=== PATIENT | male | born 1930 | race African-American/Black ===

== ENCOUNTER 2020-03-08 10:06 | Inpatient (IN) | payer MEDICARE, MEDICAID ==
[~2020-03-08] VITALS: Ht 172.7 cm; Wt 45.4 kg
[2020-03-08 10:44] LABS: BASOPHILS 0.2 % (0-2); EOSINOPHILS 0.9 % (0-7); HEMATOCRIT 34.8 % (42.0-54.0); HEMOGLOBIN 10.3 g/dL (13.5-17.5); IMMATURE GRANULOCYTES 0.2 % (0-5); LYMPHOCYTES 29.5 % (15-50); MCHC 29.6 g/dL (31.0-37.0); MCV 80.9 fL (80.0-100.0); MONOCYTES 9.8 % (2-11); NEUTROPHILS 59.4 % (40-80); PLATELET COUNT 300 10x3/uL (130-400); RDW 21.9 % (11.5-14.5); WBC 5.3 10x3/uL (4.8-10.8)
[2020-03-08 10:59] LABS: CALC OSMOLALITY 293 mosm/kg (275-300); CALCIUM 8.5 mg/dL (8.5-10.1); CARBON DIOXIDE 30.8 mmol/L (21.0-32.0); CHLORIDE - SERUM 108 mmol/L (98-107); CREATININE - SERUM 1.6 mg/dL (0.6-1.3); GLUCOSE 128 mg/dL (74-106); POTASSIUM - SERUM 3.9 mmol/L (3.5-5.1); SODIUM 145 mmol/L (136-145); UREA NITROGEN 22 mg/dL (7-18); eGFR NON AFRICAN AMERICAN 43 mL/min (90-120)
[2020-03-08 11:05] LABS: APTT 29.4 SECONDS (22.8-39.4); INR 1.4 (0.85-1.17); PROTIME 17.1 SECONDS (11.6-15.0)
[2020-03-08 11:06] LABS: ALBUMIN 1.9 g/dL (3.4-5.0); ALKALINE PHOSPHATASE 120 U/L (30-120); ALT (SGPT) 23 U/L (10-68); BILIRUBIN - TOTAL 0.44 mg/dL (0.2-1.3); CKMB 1.2 U/L (0.0-3.6); CREATINE KINASE 43 UL (21-232); PRO BNP 15116 pg/mL (0-450); PROTEIN - SERUM 7.1 g/dL (6.4-8.2); TROPONIN-I 0.043 ng/mL (0.000-0.060)
[2020-03-08 12:37] VITALS: BP 115/79
--- NOTE | 2020-03-08 12:44 | NUR ---
REPORT CALLED [facility]
[2020-03-08 13:42] VITALS: BP 130/78; BMI 15.2
--- NOTE | 2020-03-08 19:20 | NUR ---
RECEIVED REPORT, WILL ASSUME CARE OF PT, SLEEPING, NO DISTRESS NOTICED AT THIS TIME, BED ALARM IN ON, BED IS LOW, SRX2, CALL LIGHT IN REACH, WILL CONTINUE PLAN OF CARE
[2020-03-08 19:30] VITALS: BP 125/66
--- NOTE | 2020-03-08 19:30 | NUR ---
PT LAYING IN BED ALERT, SPEECH GARBLED. ASSISTED PT TO SIT UP AND EAT. PT REPORTS NO CONCERNS AT THIS TIME.
--- NOTE | 2020-03-09 02:15 | NUR ---
PT ALERT, LAYING IN BED. SPEECH GARBLED. ASSISTED PT TO SIT UP AND EAT. CALL LIGHT IN LAP. PT REPORTS NO COMPLAINTS AT THIS TIME.
[2020-03-09 06:03] VITALS: BP 139/90
[2020-03-09 06:16] LABS: BASOPHILS 0.2 % (0-2); HEMOGLOBIN 10.2 g/dL (13.5-17.5); IMMATURE GRANULOCYTES 0.2 % (0-5); LYMPHOCYTES 32.5 % (15-50); MCH 23.7 pg (26.0-34.0); MCHC 29.1 g/dL (31.0-37.0); MCV 81.4 fL (80.0-100.0); MEAN PLATELET VOLUME 9.9 fL (7.4-10.4); NEUTROPHILS 53.1 % (40-80); PLATELET COUNT 314 10x3/uL (130-400); WBC 4.5 10x3/uL (4.8-10.8)
[2020-03-09 06:38] LABS: ALBUMIN 1.7 g/dL (3.4-5.0); BILIRUBIN - TOTAL 0.2 mg/dL (0.2-1.3); CALCIUM 8.3 mg/dL (8.5-10.1); CARBON DIOXIDE 32.2 mmol/L (21.0-32.0); CREATININE - SERUM 1.6 mg/dL (0.6-1.3); MAGNESIUM - SERUM 1.7 mg/dL (1.8-2.4); PHOSPHOROUS 5.1 mg/dL (2.5-4.9); PROTEIN - SERUM 6.6 g/dL (6.4-8.2)
[2020-03-09 06:39] LABS: ANION GAP 6.1 mmol/L (8-16); POTASSIUM - SERUM 3.3 mmol/L (3.5-5.1)
--- NOTE | 2020-03-09 08:00 | NUR ---
PT RECEIVED ASLEEP IN BED. PT INCONTINENT OF URINE, LINENS CHANGED AND PT CLEANED UP AND POSITIONED FOR COMFORT. 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 NOT WANTING TO EAT.
[2020-03-09 08:33] VITALS: BP 149/76
--- NOTE | 2020-03-09 09:47 | NUR ---
RESULTS FOR PT COVID TEST BACK NEGATIVE, OUT OF ISOLATION.
--- NOTE | 2020-03-09 10:23 | NUR ---
PT MOVED TO ROOM 2133 AFTER NEG COVID TEST.
[2020-03-09 12:50] VITALS: BMI 15.2
[2020-03-09 13:06] VITALS: BP 150/80
[2020-03-09 18:00] VITALS: BP 148/83
--- NOTE | 2020-03-09 19:27 | NUR ---
PATIENT IS SLEEPING COMFORTABLY IN BED. PATIENT IS HAPPILY CONFUSED. HE HOLDS A CONVERSATION WITH YOU. HE IS ON 4 LITERS NASAL CANULA. HE WEARS 4 LITERS NASAL CANULA AT HOME. HE IS NOT ON TELE. WE WILL CONTINUE TO MONITOR HIS RESPIRATORY STATUS.
[2020-03-09 20:00] VITALS: BP 118/73
[2020-03-10] VITALS: BP 136/75
[2020-03-10 04:00] VITALS: BP 148/85
--- NOTE | 2020-03-10 04:11 | NUR ---
PATIENT IS SLEEPING COMFORTABLY IN BED. HE IS CONFUSED. HE IS SUPPOSED TO GET A THORACENTESIS THIS MORNING. WE WILL NEED A TELEPHONE ORDER FROM HIS SON, BUT WE NEED TO GET HIS SON'S TELEPHONE NUMBER. HE IS ON 4 LITERS NASAL CANULA. WE WILL CONTINUE TO MONITOR HIS RESPIRATORY STATUS.
[2020-03-10 06:49] LABS: BASOPHILS 0.2 % (0-2); EOSINOPHILS 1.8 % (0-7); HEMATOCRIT 36.3 % (42.0-54.0); HEMOGLOBIN 10.6 g/dL (13.5-17.5); IMMATURE GRANULOCYTES 0.2 % (0-5); LYMPHOCYTES 27.4 % (15-50); MCH 23.9 pg (26.0-34.0); MCHC 29.2 g/dL (31.0-37.0); MCV 81.9 fL (80.0-100.0); MEAN PLATELET VOLUME 9.4 fL (7.4-10.4); MONOCYTES 10.4 % (2-11); PLATELET COUNT 290 10x3/uL (130-400); RBC 4.43 10x6/uL (4.20-6.10); RDW 21.9 % (11.5-14.5); WBC 4.4 10x3/uL (4.8-10.8)
[2020-03-10 06:56] LABS: CALCIUM 8.5 mg/dL (8.5-10.1); CARBON DIOXIDE 37.6 mmol/L (21.0-32.0); CREATININE - SERUM 1.4 mg/dL (0.6-1.3); MAGNESIUM - SERUM 1.5 mg/dL (1.8-2.4); PHOSPHOROUS 4.1 mg/dL (2.5-4.9); POTASSIUM - SERUM 3.6 mmol/L (3.5-5.1)
[2020-03-10 07:29] LABS: APTT 31.7 SECONDS (22.8-39.4)
[2020-03-10 07:33] LABS: INR 1.25 (0.85-1.17); PROTIME 15.6 SECONDS (11.6-15.0)
[2020-03-10 09:02] VITALS: Ht 172.7 cm; Wt 45.4 kg
[2020-03-10 09:56] VITALS: BP 142/78
--- NOTE | 2020-03-10 15:38 | NUR ---
OT NOTE: PT OUT OF ROOM AT 3:00..WILL RE ATTEMPT TOMORROW. HENRIQUE MCCLENDON, OTR/L
[2020-03-10 16:34] LABS: PROTEIN - BODY FLUID 4.9 G/DL
--- NOTE | 2020-03-10 19:20 | NUR ---
PATIENT IS RESTING IN BED. HIS SON IS IN THE ROOM. PATIENT IS ALERT, BUT HAS SOME CONFUSION. HE IS ON NASAL CANULA. WE WILL CONTINUE TO HIS RESPIRATORY STATUS.
[2020-03-11] VITALS: BP 98/61
[2020-03-11 05:51] LABS: BASOPHILS 0 % (0-2); EOSINOPHILS 0.9 % (0-7); HEMATOCRIT 34.3 % (42.0-54.0); HEMOGLOBIN 10.1 g/dL (13.5-17.5); IMMATURE GRANULOCYTES 0.2 % (0-5); LYMPHOCYTES 27.8 % (15-50); MCHC 29.4 g/dL (31.0-37.0); MCV 81.7 fL (80.0-100.0); MEAN PLATELET VOLUME 9.2 fL (7.4-10.4); MONOCYTES 9.8 % (2-11); NEUTROPHILS 61.3 % (40-80); PLATELET COUNT 246 10x3/uL (130-400); RDW 21.8 % (11.5-14.5); WBC 4.5 10x3/uL (4.8-10.8)
[2020-03-11 06:28] LABS: ANION GAP 6.8 mmol/L (8-16); CALCIUM 8.6 mg/dL (8.5-10.1); CARBON DIOXIDE 37.5 mmol/L (21.0-32.0); CREATININE - SERUM 1.3 mg/dL (0.6-1.3); MAGNESIUM - SERUM 1.8 mg/dL (1.8-2.4); PHOSPHOROUS 4.4 mg/dL (2.5-4.9); POTASSIUM - SERUM 3.3 mmol/L (3.5-5.1)
[2020-03-11 09:00] VITALS: BP 120/57
[2020-03-11 12:00] VITALS: BP 125/70
--- NOTE | 2020-03-11 13:41 | NUR ---
Nutrition Follow-up: Pt confused. Nursing reports that pt is a feeder but is unsure how he ate this AM. No family at BS. Thoracentesis yesterday (-1.6 L). Diet: Cardiac PO intake: 0-50% per chart Wt: 100# (03/09) Labs noted: K+ 3.3, Glu 69 Meds noted: Lasix, electrolyte protocol -Encourage PO intake and honor food preferences within diet restrictions. -+Ensure with meals. -Monitor wt. -RD following.
--- NOTE | 2020-03-11 16:21 | NUR ---
I have reviewed this patient and I concur with the Shift Assessment completed by the Licensed Practical Nurse today this shift.
[2020-03-11 16:28] VITALS: BP 124/69
[2020-03-11 20:00] VITALS: BP 126/70
--- NOTE | 2020-03-11 20:30 | NUR ---
PATIENT IS RESTING COMFORTABLY IN BED. HE IS PLEASANTLY CONFUSED. HE IS HARD OF HEARING, AND HIS HEARING AIDS ARE IN BOX ON SINK. HE IS ON NASAL CANULA. WE WILL CONTINUE TO MONITOR HIS RESPIRATORY STATUS.
[2020-03-12] VITALS: BP 133/68
[2020-03-12 04:00] VITALS: BP 129/67
[2020-03-12 05:25] LABS: BASOPHILS 0 % (0-2); EOSINOPHILS 1.4 % (0-7); HEMOGLOBIN 9.1 g/dL (13.5-17.5); IMMATURE GRANULOCYTES 0.2 % (0-5); LYMPHOCYTES 30.4 % (15-50); MCH 23.6 pg (26.0-34.0); MCHC 29.4 g/dL (31.0-37.0); MCV 80.3 fL (80.0-100.0); MEAN PLATELET VOLUME 9.5 fL (7.4-10.4); PLATELET COUNT 246 10x3/uL (130-400); RBC 3.86 10x6/uL (4.20-6.10); WBC 4.2 10x3/uL (4.8-10.8)
[2020-03-12 06:46] LABS: ANION GAP 8.6 mmol/L (8-16); CALCIUM 8.2 mg/dL (8.5-10.1); CARBON DIOXIDE 37.3 mmol/L (21.0-32.0); CREATININE - SERUM 1.3 mg/dL (0.6-1.3); MAGNESIUM - SERUM 1.5 mg/dL (1.8-2.4)
[2020-03-12 07:01] LABS: PHOSPHOROUS 2.8 mg/dL (2.5-4.9)
[2020-03-12 07:02] LABS: POTASSIUM - SERUM 2.9 mmol/L (3.5-5.1)
--- NOTE | 2020-03-12 07:15 | NUR ---
received pt in bed eyes closed resp unlabored skin w/d color wnl naD NOTED
[2020-03-12 09:00] VITALS: BP 138/67
[2020-03-12 12:45] VITALS: BP 123/62
--- NOTE | 2020-03-12 13:30 | NUR ---
OT NOTE: PT WITH INCREASED CONFUSION TODAY. ATTEMPTING TO GET OUT OF BED AND STATING THAT HE NEEDS TO GO HOME. PT WAS WET WITH URINE AND HAD SPILLED FOOD ALL IN BED. PT ABLE TO PERFORM BED MOB WITH SPV; STATIC SITTING ON EOB WITH SPV; PROVIDED BASIN OF WATER AND WASHCLOTHS.. PT REQUIRED CUES TO INITIATE BATHING EACH AREA, BUT WAS ABLE TO PERFORM FACE, ARMS, AND CHEST WITH SET UP AND VERBAL CUES..REQUIRED ASSIST WITH LES AND PERINEAL AREAS. MIN ASSIST TO DEMETRIUS GOWN AND MIN ASSIST TO DEMETRIUS PULL UPS; PROVIDED CLEAN LINENS.. PT WAS ABLE TO AMB AROUND ROOM WITH PLASTER MACHINE TENDER; ABLE TO STAND AT SINK WITH MIN ASSIST FOR BALANCE. 02 AT 3.5 L.. HENRIQUE MCCLENDON, OTR/L [phone]
--- NOTE | 2020-03-12 14:51 | MORECARE ---
CASE MANAGEMENT DISCHARGE SUMMARY PATIENT: BROOKE ZHENG JR UNIT: [id number] ADM DATE: 03/08/20 AGE: 89 : [birth year] SEX: M ROOM/BED: D.2134 AUTHOR: CAROL STORY PHYSICIAN: REFERRING PHYSICIAN: SHARI GILMORE MD DATE OF SERVICE: 03/12/20 Discharge Plan Patient Name: BROOKE ZHENG [facility] [facility] 1930 Planned Disposition: Anticipated Discharge Date: Discharge Date: Expected LOS: Initial Reviewer: [email or web address] Initial Review Date: 03/08/2020 Generated: 03/12/20 3:50 pm Comments DCP- Discharge Planning Updated by [id number]: Siobhan Wolf on 03/12/20 1:[address] CM unable to meet with patient related to confusion. CM called David (son) at [phone]. Unable to leave message because the voice mail has not been set. up. CM will continue following and assisting with DC plans. Siobhan Wolf Patient Name: BROOKE ZHENG Page 28865 at 1451 All edits/amendments must be made on the electronic document DICTATION DATE: 03/12/201450 SALES CENTER MANAGER: RADHA 03/12/20 145 RPT#: [id number] DC DATE: STATUS: ADM IN [facility] [address] [place] [address] END OF REPORT
[2020-03-12 15:51] VITALS: BP 116/59
--- NOTE | 2020-03-12 19:43 | NUR ---
OT NOTE: PT STATED HE WANTS TO GO HOME. PT EXHIBITED INCREASED CONFUSION. NURSING AWARE. PT COMPLETED SUPINE TO SIT WITH MIN A. PT COMPLETED EOB SITTING WITH SBA/CGA. PT COMPLETED UE AAROM FOR INCREASED AX TOLERANCE. PT REQUIRED MAX A WITH LB HYGIENE TASKS. [phone] THANK YOU,MICHAEL SINGH
--- NOTE | 2020-03-12 19:55 | NUR ---
PATIENT IS RESTING IN BED. HE IS PLEASANTLY CONFUSED. HE IS ON NASAL CANULA. NO TELEMETRY. WE WILL CONTINUE TO MONITOR HIS RESPIRATORY STATUS.
[2020-03-12 20:30] VITALS: BP 115/71
[2020-03-13 00:32] VITALS: BP 111/68
[2020-03-13 03:21] VITALS: BP 105/60
--- NOTE | 2020-03-13 04:21 | NUR ---
PATIENT IS RESTING COMFORTABLY IN BED. HE IS PLEASANTLY CONFUSED. HE IS ON 4 LITERS NASAL CANULA. WE WILL CONTNUE TO MONITOR HIS RESPIRATORY STATUS.
[2020-03-13 05:07] LABS: BASOPHILS 0 % (0-2); HEMATOCRIT 32.6 % (42.0-54.0); HEMOGLOBIN 9.9 g/dL (13.5-17.5); IMMATURE GRANULOCYTES 0.2 % (0-5); MCH 24.3 pg (26.0-34.0); MCHC 30.4 g/dL (31.0-37.0); MCV 80.1 fL (80.0-100.0); MEAN PLATELET VOLUME 8.8 fL (7.4-10.4); MONOCYTES 14.1 % (2-11); NEUTROPHILS 54.7 % (40-80); PLATELET COUNT 221 10x3/uL (130-400); RBC 4.07 10x6/uL (4.20-6.10); RDW 21.9 % (11.5-14.5); WBC 4.8 10x3/uL (4.8-10.8)
[2020-03-13 05:27] LABS: ANION GAP 4.9 mmol/L (8-16); CALCIUM 8.4 mg/dL (8.5-10.1); CARBON DIOXIDE 38.8 mmol/L (21.0-32.0); CREATININE - SERUM 1.2 mg/dL (0.6-1.3); MAGNESIUM - SERUM 1.7 mg/dL (1.8-2.4); PHOSPHOROUS 2.3 mg/dL (2.5-4.9); POTASSIUM - SERUM 3.7 mmol/L (3.5-5.1)
[2020-03-13 08:30] VITALS: BP 107/68
--- NOTE | 2020-03-13 09:27 | NUR ---
RESTING IN BED, NO DISTRESS NOTED, O2 PER NC, OPENS EYES WHEN SPOKEN TO, FED BREAKFAST, CONT TO MONITOR
[2020-03-13 11:30] VITALS: BP 117/69
[2020-03-13 15:30] VITALS: BP 135/75
--- NOTE | 2020-03-13 19:30 | NUR ---
PT IN BED, SON AT BEDSIDE, PT EYES CLOSED, RESP EVEN AND UNLABORED, NO DISTRESS NOTED. CL IN REACH, SR UP X 2.
[2020-03-13 20:00] VITALS: BP 118/68
[2020-03-14] VITALS: BP 124/75
--- NOTE | 2020-03-14 00:21 | NUR ---
I have reviewed this patient and I concur with the Shift Assessment completed by the Licensed Practical Nurse today this shift.
[2020-03-14 04:00] VITALS: BP 118/62
[2020-03-14 04:51] LABS: BASOPHILS 0.2 % (0-2); EOSINOPHILS 2.5 % (0-7); HEMATOCRIT 32.9 % (42.0-54.0); HEMOGLOBIN 9.9 g/dL (13.5-17.5); IMMATURE GRANULOCYTES 0.2 % (0-5); LYMPHOCYTES 31.5 % (15-50); MCH 24.1 pg (26.0-34.0); MCHC 30.1 g/dL (31.0-37.0); MEAN PLATELET VOLUME 9.7 fL (7.4-10.4); MONOCYTES 14.9 % (2-11); NEUTROPHILS 50.7 % (40-80); PLATELET COUNT 234 10x3/uL (130-400); RBC 4.11 10x6/uL (4.20-6.10); RDW 22.1 % (11.5-14.5); WBC 4.8 10x3/uL (4.8-10.8)
[2020-03-14 05:20] LABS: ANION GAP 4.9 mmol/L (8-16); CALCIUM 8.2 mg/dL (8.5-10.1); CREATININE - SERUM 1.1 mg/dL (0.6-1.3); MAGNESIUM - SERUM 1.7 mg/dL (1.8-2.4); PHOSPHOROUS 3.6 mg/dL (2.5-4.9); POTASSIUM - SERUM 3.4 mmol/L (3.5-5.1)
[2020-03-14 05:21] LABS: CARBON DIOXIDE 42.5 mmol/L (21.0-32.0)
--- NOTE | 2020-03-14 07:20 | NUR ---
RECIEVE REPORT. RESTING IN BED WITH EYES CLOSED. RESPIRATIONS SHALLOW. O2 @ 2L NC. NO SIGNS OF DISTRESS. CONTINUE PLAN OF CARE AND SAFETY PRECUATIONS.
[2020-03-14 09:38] VITALS: BP 114/62
[2020-03-14 13:30] VITALS: BP 114/64
[2020-03-14 20:20] VITALS: BP 121/68
[2020-03-15 04:00] VITALS: BP 117/69
[2020-03-15 06:08] LABS: ANION GAP 3.5 mmol/L (8-16); CALCIUM 8.3 mg/dL (8.5-10.1); CREATININE - SERUM 1.2 mg/dL (0.6-1.3); MAGNESIUM - SERUM 1.7 mg/dL (1.8-2.4); PHOSPHOROUS 3.8 mg/dL (2.5-4.9); POTASSIUM - SERUM 3.2 mmol/L (3.5-5.1)
[2020-03-15 06:09] LABS: CARBON DIOXIDE 43.7 mmol/L (21.0-32.0)
--- NOTE | 2020-03-15 07:20 | NUR ---
RECIEVE REPORT. RESTING IN BED WITH EYES CLOSED. AROUSES EASILY TO STIMULI. [place] PASS. BETTER HEARING IN LT EAR. DENIES ANY NEEDS. CONTINUE PLAN OF CARE AND SAFETY PRECAUTIONS.
[2020-03-15 08:00] VITALS: BP 107/65
[2020-03-15 11:00] VITALS: BP 114/62
[2020-03-15 15:00] VITALS: BP 127/68
--- NOTE | 2020-03-15 15:14 | NUR ---
OT NOTE: BED MOB WITH MIN ASSIST; EOB SITTING ON BED WITH SPV AND GOOD BALANCE; MOD ASSIST TO DEMETRIUS PULL UPS; MIN ASSIST TO DEMETRIUS GOWN; MIN ASSIST TO BATHE UPPER BODY; MOD ASSIST TO BATHE LOWER BODY. IN ROOM AMBULATION WITH WALKER AND MIN/CGA; AMB INTO HALLWAY WITH MIN ASSIST AMD RW TO IMPROVE STRENGTH AND FUNCTIONAL ENDURANCE; ASSISTED WITH FEEDING FOR SET UP ONLY. PT DOES BETTER IF SITTING UP IN CHAIR FOR MEALS. HENRIQUE MCCLENDON, OTR/L
--- NOTE | 2020-03-15 15:29 | NUR ---
OT NOTE: PT IS [place] PASS. PT REQUIRED VISUAL CUES FOR INCREASED PARTICIPATION. PT COMPLETED UE AROM TOLERATED. PT COMPLETED SIT TO STAND WITH CGA. PT COMPLETED EOB SITTING BALANCE WITH CGA. PT COMPLETED ORAL CARE WITH MIN A. [phone] THANK YOU,MICHAEL SINGH
--- NOTE | 2020-03-15 15:35 | NUR ---
OT NOTE: PT COMPLETED BED MOB TASKS WITH MIN/MOD A WITH LLE. PT COMPLETED BED TO BSC TSF WITH CGA. PT COMPLETED TOILETING TASKS WITH CGA. PT COMPLETED HYGIENE WITH SET UP. [phone] THANK YOU,MICHAEL SINGH
--- NOTE | 2020-03-15 16:31 | NUR ---
ALERT AND ORIENTED X4. RESTING IN BED. TOOK LT FA IV OUT TIP INTACT. REFUSE IV RESITE. PATIENT STATES, "I'M DONE WITH THE IVs. I'VE HAD TOO MANY. NO MORE."
--- NOTE | 2020-03-15 19:00 | NUR ---
EVENING ROUNDS COMPLETE. PT LAYING IN BED. NO SIGNS OF DISTRESS. PT DENIES ANY PAIN OR NEEDS AT THIS TIME. AAOX4. CL IN REACH, BED IN LOWEST POSITION.
[2020-03-15 20:00] VITALS: BP 123/62
[2020-03-16 00:59] VITALS: BP 127/79
[2020-03-16 05:11] VITALS: BP 121/73
[2020-03-16 06:14] LABS: BASOPHILS 0 % (0-2); EOSINOPHILS 7.2 % (0-7); HEMATOCRIT 29.1 % (42.0-54.0); HEMOGLOBIN 8.6 g/dL (13.5-17.5); LYMPHOCYTES 32.7 % (15-50); MCH 23.6 pg (26.0-34.0); MCHC 29.6 g/dL (31.0-37.0); MCV 79.9 fL (80.0-100.0); MEAN PLATELET VOLUME 9.7 fL (7.4-10.4); NEUTROPHILS 45.1 % (40-80); PLATELET COUNT 225 10x3/uL (130-400); RBC 3.64 10x6/uL (4.20-6.10); RDW 21.8 % (11.5-14.5); WBC 3.7 10x3/uL (4.8-10.8)
[2020-03-16 06:28] LABS: ANION GAP 1.4 mmol/L (8-16); CALCIUM 8.4 mg/dL (8.5-10.1); CREATININE - SERUM 1.1 mg/dL (0.6-1.3); MAGNESIUM - SERUM 1.8 mg/dL (1.8-2.4); PHOSPHOROUS 3.3 mg/dL (2.5-4.9); POTASSIUM - SERUM 3.5 mmol/L (3.5-5.1)
[2020-03-16 06:52] LABS: CARBON DIOXIDE 43.1 mmol/L (21.0-32.0)
--- NOTE | 2020-03-16 07:15 | NUR ---
RECEIVE BEDSIDE SHIFT REPORT. RESTING IN BED WITH EYES CLOSED. NO SIGNS OF DISTRESS. CALL LIGHT IN REACH. WILL CONTINUE PLAN OF CARE AND SAFETY PRECAUTIONS.
[2020-03-16 08:00] VITALS: BP 131/71
[2020-03-16 11:00] VITALS: BP 111/62
--- NOTE | 2020-03-16 11:50 | NUR ---
PATIENT REFUSE IV. CALLED ISAIAH GODINEZ APRN TO DISCUSS PLANS FOR MEDICATION. WILL PUT IN ORDERS FOR ORAL MEDICATIONS.
--- NOTE | 2020-03-16 12:46 | NUR ---
Nutrition Follow-up: Nurse feeding pt at time of visit this AM. Drinking Ensure as well. Diet: Cardiac, Ensure TID PO intake: 44% avg x 9 meals Wt: 100# (03/09) Last BM: 03/14 per chart Labs noted: Ca 8.4 Meds noted: Lasix, electrolyte protocol -Encourage PO intake and honor food preferences within diet restrictions. -Pt may benefit from an appetite stimulant. -Need new wt. -RD following.
[2020-03-16 15:00] VITALS: BP 115/60
--- NOTE | 2020-03-16 16:12 | NUR ---
OT NOTE: PT LIEING IN BED. INITIALLY RESISTANT TO ALL ACTIVITIES BUT AGREEABLE WITH ENCOURAGEMENT. BED MOB WITH CGA; IN ROOM AMB WITH WALKER AND MIN ASSIST; ABLE TO PERFORM SIMPLE GROOMING TASKS WITH SET UP.. VERY [place] AND FREQ REQURIES DEMONSTRATIONAL CUES. PT DOES NOT WANT TO SIT UP.. WANTS TO LIE BACK DOWN IN BED. HENRIQUE MCCLENDON, OTR/L [phone]
--- NOTE | 2020-03-16 16:20 | NUR ---
Rehab Note- Recevied call from Marianela with [facility] stating their medical numerical control operator has denied the patient an inpatient acute rehab stay. A peer to peer can be set up by 1500 on Sun03/17/2020 by calling Marianela at [phone]. Left VM for [facility] Arciniega. Thank you for this referral! Anais Garza RN Clinical Liaison, [facility] Rehab
--- NOTE | 2020-03-16 17:16 | NUR ---
OT NOTE: PT COMPLETED SUPINE TO SIT WITH MIN A. PT COMPLETED EOB SITTING WITH SBA. PT COMPLETED SIT TO STAND WITH MIN/CGA. PT COMPLETED ADL MOB WITH RW WITH CGA. PT COMPLETED FACE HYGIENE WITH SET UP. [phone] THANK YOU,DEISY CAMPOS.MICHAEL
--- NOTE | 2020-03-16 19:00 | NUR ---
REPORT RECEIVED, WILL CONTINUE POC. PATIENT IS RESTING WITH EYES CLOSED. NO S/S OF DISTRESS OBSERVED, RR EVEN AND UNLABORED ON 2L O2 VIA NC. PATIENT DENIES NEEDS AT THIS TIME. CL IN REACH, BED LOCKED AND LOWERED. WILL CTM.
[2020-03-16 20:00] VITALS: BP 115/69
[2020-03-17] VITALS: BP 112/70
[2020-03-17 04:00] VITALS: BP 111/65
--- NOTE | 2020-03-17 04:04 | NUR ---
I have reviewed this patient and I concur with the Shift Assessment completed by the Licensed Practical Nurse today this shift.
[2020-03-17 06:57] LABS: BASOPHILS 0 % (0-2); EOSINOPHILS 4.7 % (0-7); HEMATOCRIT 29.4 % (42.0-54.0); HEMOGLOBIN 8.7 g/dL (13.5-17.5); IMMATURE GRANULOCYTES 0.2 % (0-5); LYMPHOCYTES 24.8 % (15-50); MCH 23.6 pg (26.0-34.0); MCHC 29.6 g/dL (31.0-37.0); MCV 79.7 fL (80.0-100.0); MEAN PLATELET VOLUME 9.7 fL (7.4-10.4); MONOCYTES 12.1 % (2-11); NEUTROPHILS 58.2 % (40-80); PLATELET COUNT 237 10x3/uL (130-400); RBC 3.69 10x6/uL (4.20-6.10); RDW 21.6 % (11.5-14.5)
[2020-03-17 07:16] LABS: ANION GAP 0.9 mmol/L (8-16); CALCIUM 8.6 mg/dL (8.5-10.1); CREATININE - SERUM 1.1 mg/dL (0.6-1.3); POTASSIUM - SERUM 3.8 mmol/L (3.5-5.1)
[2020-03-17 07:32] LABS: CARBON DIOXIDE 42.9 mmol/L (21.0-32.0)
[2020-03-17 07:40] LABS: MAGNESIUM - SERUM 2.1 mg/dL (1.8-2.4); PHOSPHOROUS 3.6 mg/dL (2.5-4.9)
[2020-03-17 08:00] VITALS: BP 125/72
[2020-03-17 11:00] VITALS: BP 109/66
--- NOTE | 2020-03-17 12:09 | MORECARE ---
CASE MANAGEMENT DISCHARGE SUMMARY PATIENT: BROOKE ZHENG JR UNIT: [id number] ADM DATE: 03/08/20 AGE: 89 : [birth year] SEX: M ROOM/BED: D.2109 AUTHOR: CAROL STORY PHYSICIAN: REFERRING PHYSICIAN: SHARI GILMORE MD DATE OF SERVICE: 03/17/20 Discharge Plan Patient Name: BROOKE ZHENG [facility] [facility] 1930 Planned Disposition: Anticipated Discharge Date: Discharge Date: Expected LOS: Initial Reviewer: [email or web address] Initial Review Date: 03/08/2020 Generated: 03/17/20 1:08 pm Comments DCP- Discharge Planning Updated by [email or web address]: Suze Holguin on 03/17/20 11:[address] P2P has been set up for this patient. #[phone], Marianela. The insurance MD has 24 H to respond . DCP- Discharge Planning Updated by [email or web address]: Siobhan Wolf on 03/12/20 1:[address] CM unable to meet with patient related to confusion. CM called David (son) at [phone]. Unable to leave message because the voice mail has not been set. up. CM will continue following and assisting with DC plans. Siobhan Wolf Last DP export: 03/12/20 1:51 p Patient Name: BROOKE ZHENG Page 17333 at 1209 All edits/amendments must be made on the electronic document DICTATION DATE: 03/17/201207 SOLAR SYSTEMS DESIGNER: RADHA 03/17/20 1208 RPT#: [id number] DC DATE: STATUS: ADM IN [facility] [address] [place] [address] END OF REPORT
--- NOTE | 2020-03-17 12:17 | MORECARE ---
CASE MANAGEMENT DISCHARGE SUMMARY PATIENT: BROOKE ZHENG JR UNIT: [id number] ADM DATE: 03/08/20 AGE: 89 : [birth year] SEX: M ROOM/BED: D.2109 AUTHOR: CAROL STORY PHYSICIAN: REFERRING PHYSICIAN: SHARI GILMORE MD DATE OF SERVICE: 03/17/20 Discharge Plan Patient Name: BROOKE ZHENG [facility] : 1930 Planned Disposition: Anticipated Discharge Date: Discharge Date: Expected LOS: Initial Reviewer: [email or web address] Initial Review Date: 03/08/2020 Generated: 03/17/20 1:16 pm Comments DCP- Discharge Planning Updated by [email or web address]: Suze Holguin on 03/17/20 11:[address] P2P has been set up for this patient. #[phone], Marianela. The insurance MD has 24 H to respond . CM notified Carolyn Vital GALLERY OR MUSEUM TECHNICIAN of same. DCP- Discharge Planning Updated by [email or web address]: Siobhan Wolf on 03/12/20 1:[address] CM unable to meet with patient related to confusion. CM called David (son) at [phone]. Unable to leave message because the voice mail has not been set. up. CM will continue following and assisting with DC plans. Siobhan Wolf Last DP export: 03/17/20 11:09 am Patient Name: BROOKE ZHENG Page 12750 at 1217 All edits/amendments must be made on the electronic document DICTATION DATE: 03/17/20 1216 FARM MACHINERY MECHANIC: RADHA 03/17/20 1216 RPT#: [id number] DC DATE: STATUS: ADM IN [facility] [address] [place] [address] END OF REPORT
[2020-03-17 15:00] VITALS: BP 121/64
--- NOTE | 2020-03-17 16:39 | NUR ---
OT NOTE: PT COMPLETED SIT TO STAND WITH CGA. PT COMPLETED UNDERGARMENT MANAGEMENT WITH MIN A. PT COMPLETED UB HYGIENE TASKS WITH MIN A AT EOB. PT COMPLETED ADL MOB WITH RW REQUIRED CGA. PT COMPLETED WALKER MANAGEMENT WITH MIN A FOR INCREASED SAFETY. PT ACTIVELY PARTICIPATED AND COOPERATIVE. [phone] THANK YOU,MICHAEL SINGH
--- NOTE | 2020-03-17 16:43 | MORECARE ---
CASE MANAGEMENT DISCHARGE SUMMARY PATIENT: BROOKE ZHENG JR UNIT: [id number] ADM DATE: 03/08/20 AGE: 89 : [birth year] SEX: M ROOM/BED: D.2105 AUTHOR: JEZ,DOC PHYSICIAN: REFERRING PHYSICIAN: SHARI GILMORE MD DATE OF SERVICE: 03/17/20 Discharge Plan Patient Name: BROOKE ZHENG Facility: [facility]:[place] : 1930 Planned Disposition: Anticipated Discharge Date: Discharge Date: Expected LOS: Initial Reviewer: [email or web address] Initial Review Date: 03/08/2020 Generated: 03/17/20 5:42 pm Comments DCP- Discharge Planning Updated by [email or web address]: Suze Holguin on 03/17/20 3:[address] CM contacted by Danette Vital, ROSE MARY regarding P2P. The insurance company has declined Inpatient Rehab, but would authorize a Skilled stay. The patient's son states he would rather take the patient home with [facility], at least for as long as can treat him. CM met with the patient's son, Betsy Zheng ([phone]), regarding a secondary plan, in case the P2P is unable to convince insurance of Rehab needs. Patient has [facility] ([phone]) prior to admission. DME: Walker, w/c, shower chair, Home O2 with portability. Patient's son states that he always carries a portable O2 tank in his car for his father. Release of information signed for patient, per son, in case he needs to make other arrangements, later. Patient's son will drive patient home upon DC and to his MD appointments. P2P has been set up for this patient. #[phone], Marianela. The insurance MD has 24 H to respond . CM notified Carolyn Vital NP of same. DCP- Discharge Planning Updated by [email or web address]: Siobhan Wolf on 03/12/20 1:[address] CM unable to meet with patient related to confusion. CM called David (son) at [phone]. Unable to leave message because the voice mail has not been set. up. CM will continue following and assisting with DC plans. Siobhan Wolf Last DP export: 03/17/20 11:17 am Patient Name: BROOKE ZHENG Page 63675 at 1643 All edits/amendments must be made on the electronic document DICTATION DATE: 03/17/201641 EXTERIOR DOOR INSTALLER: RADHA 03/17/201641 RPT#: [id number] DC DATE: STATUS: ADM IN [facility] [address] [place] [address] END OF REPORT
--- NOTE | 2020-03-17 17:06 | MORECARE ---
CASE MANAGEMENT DISCHARGE SUMMARY PATIENT: BROOKE ZHENG JR UNIT: [id number] ADM DATE: 03/08/20 AGE: 89 : [birth year] SEX: M ROOM/BED: D.2105 AUTHOR: JEZ,DOC PHYSICIAN: REFERRING PHYSICIAN: SHARI GILMORE MD DATE OF SERVICE: 03/17/20 Discharge Plan Patient Name: BROOKE ZHENG Facility: [facility]:[place] : 1930 Planned Disposition: Home Health Service Anticipated Discharge Date: 03/18/20 Discharge Date: Expected LOS: 10 Initial Reviewer: [email or web address] Initial Review Date: 03/08/2020 Generated: 03/17/20 6:05 pm Comments DCP- Discharge Planning Updated by [email or web address]: Suze Holguin on 03/17/20 3:[address] CM contacted by Danette Vital, ROSE MARY regarding P2P. The insurance company has declined Inpatient Rehab, but would authorize a Skilled stay. The patient's son states he would rather take the patient home with [facility], at least for as long as HH can treat him. CM met with the patient's son, Betsy Zheng ([phone]), regarding a secondary plan, in case the P2P is unable to convince insurance of Rehab needs. Patient has [facility] ([phone]) prior to admission. DME: Walker, w/c, shower chair, Home O2 with portability. Patient's son states that he always carries a portable O2 tank in his car for his father. Release of information signed for patient, per son, in case he needs to make other arrangements, later. Patient's son will drive patient home upon DC and to his MD appointments. P2P has been set up for this patient. #[phone], Marianela. The insurance MD has 24 H to respond . CM notified Carolyn Vital NP of same. DCP- Discharge Planning Updated by [email or web address]: Siobhan Wolf on 03/12/20 1:[address] CM unable to meet with patient related to confusion. CM called David (son) at [phone]. Unable to leave message because the voice mail has not been set. up. CM will continue following and assisting with DC plans. Siobhan Wolf Last DP export: 03/17/20 3:43 pm Patient Name: BROOKE ZHENG Page 90037 at 1706 All edits/amendments must be made on the electronic document DICTATION DATE: 03/17/201704 HOTEL BAGGAGE HANDLER: RADHA 03/17/201704 RPT#: [id number] DC DATE: STATUS: ADM IN [facility] [address] [place] [address] END OF REPORT
[2020-03-17 20:00] VITALS: BP 112/52
--- NOTE | 2020-03-17 23:14 | NUR ---
PATIENT IS SLEEPING COMFORTABLY IN BED. HE IS PLEASANTLY CONFUSED. HE IS ON NASAL CANULA. WE WILL CONTINUE TO MONITOR HIS RESPIRATORY STATUS.
[2020-03-18] VITALS: BP 104/56
[2020-03-18 04:00] VITALS: BP 119/69
--- NOTE | 2020-03-18 04:11 | NUR ---
PATIENT IS SLEEPING COMFORTABLY IN BED. HE IS CONFUSED TO SITUATION AND TIME. HE IS NASAL CANULA. WE WILL CONTINUE TO MONITOR HIS RESPIRATORY STATUS.
[2020-03-18 06:27] LABS: BASOPHILS 0 % (0-2); EOSINOPHILS 4.5 % (0-7); HEMATOCRIT 27.8 % (42.0-54.0); HEMOGLOBIN 8.3 g/dL (13.5-17.5); IMMATURE GRANULOCYTES 0.3 % (0-5); LYMPHOCYTES 27.2 % (15-50); MCH 23.7 pg (26.0-34.0); MCHC 29.9 g/dL (31.0-37.0); MCV 79.4 fL (80.0-100.0); MONOCYTES 13.4 % (2-11); NEUTROPHILS 54.6 % (40-80); PLATELET COUNT 231 10x3/uL (130-400); RDW 21.5 % (11.5-14.5)
[2020-03-18 07:17] LABS: ANION GAP 3.9 mmol/L (8-16); CALCIUM 8.4 mg/dL (8.5-10.1); CREATININE - SERUM 1.1 mg/dL (0.6-1.3); MAGNESIUM - SERUM 1.8 mg/dL (1.8-2.4); PHOSPHOROUS 3.2 mg/dL (2.5-4.9); POTASSIUM - SERUM 4.1 mmol/L (3.5-5.1)
[2020-03-18 07:33] LABS: CARBON DIOXIDE 42.2 mmol/L (21.0-32.0)
--- NOTE | 2020-03-18 07:43 | NUR ---
PT LAYING SUPINE, RR EVEN AND UNLABORED. DENIES NEEDS OR PAIN AT THIS TIME. CALL LIGHT WITHIN REACH. BED IN LOWEST POSITION. WILL CONTINUE TO MONITOR.
[2020-03-18 08:01] VITALS: BP 114/66
--- NOTE | 2020-03-18 10:02 | NUR ---
Nutrition Follow-up: Nursing reports pt eating ok but having some difficulty with tougher foods. Ate ~75% of breakfast this AM. Diet: Cardiac, Ensure TID PO intake: 25-75% Wt: 100# (03/09) Last BM: 03/14 per chart Labs reviewed Meds noted: Lasix, electrolyte protocol -+mech soft/chopped to current diet order. -Encourage PO intake and honor food preferences within diet restrictions. -Need new wt. -RD following.
--- NOTE | 2020-03-18 10:14 | NUR ---
Rehab Note- Received VM from Marianela with [facility] stating that Peer to Peer had been completed and denial is still upheld therefore will be issuing a denial letter. Will notify Case Management. Thank you for this referral! Anais Garza RN Clinical Liaison, [facility] Rehab
[2020-03-18 12:13] VITALS: BP 124/67
[2020-03-18] MEDS ORDERED: ZITHROMAX250 MG PO (12:30)
[2020-03-18] MEDS ORDERED: OMNICEF300 MG PO (12:31)
[2020-03-18] MEDS ORDERED: POTASSIUM CHLO10 ME1 PO (12:32)
[2020-03-18] MEDS ORDERED: LASIX20 MG PO (12:32)
--- NOTE | 2020-03-18 13:57 | MORECARE ---
CASE MANAGEMENT DISCHARGE SUMMARY PATIENT: BROOKE ZHENG JR UNIT: [id number] ADM DATE: 03/08/20 AGE: 89 : [birth year] SEX: M ROOM/BED: D.2105 AUTHOR: JEZ,DOC PHYSICIAN: REFERRING PHYSICIAN: SHARI GILMORE MD DATE OF SERVICE: 03/18/20 Discharge Plan Patient Name: BROOKE ZHENG Facility: [facility]:[place] : 1930 Planned Disposition: Home Health Service Anticipated Discharge Date: 03/18/20 Discharge Date: Expected LOS: 10 Initial Reviewer: [email or web address] Initial Review Date: 03/08/2020 Generated: 03/18/20 2:56 pm Comments DCP- Discharge Planning Updated by [email or web address]: Suze Holguin on 03/17/20 3:[address] CM contacted by Danette Vital, ROSE MARY regarding P2P. The insurance company has declined Inpatient Rehab, but would authorize a Skilled stay. The patient's son states he would rather take the patient home with [facility], at least for as long as HH can treat him. CM met with the patient's son, Betsy Zheng ([phone]), regarding a secondary plan, in case the P2P is unable to convince insurance of Rehab needs. Patient has [facility] ([phone]) prior to admission. DME: Walker, w/c, shower chair, Home O2 with portability. Patient's son states that he always carries a portable O2 tank in his car for his father. Release of information signed for patient, per son, in case he needs to make other arrangements, later. Patient's son will drive patient home upon DC and to his MD appointments. P2P has been set up for this patient. #[phone], Marianela. The insurance MD has 24 H to respond . CM notified Carolyn Vital NP of same. DCP- Discharge Planning Updated by [email or web address]: Siobhan Wolf on 03/12/20 1:[address] CM unable to meet with patient related to confusion. CM called David (son) at [phone]. Unable to leave message because the voice mail has not been set. up. CM will continue following and assisting with DC plans. Siobhan Wolf External Providers [facility] Contact Date: Service Request Date: Service Type: Resolution: Reviewer: Comments: Last DP export: 03/17/20 4:06 pm Patient Name: BROOKE ZHENG Page [id number] at 1357 All edits/amendments must be made on the electronic document DICTATION DATE: 03/18/20 1356 BOOTH CASHIER: RADHA 03/18/20 1356 RPT#: [id number] DC DATE: STATUS: ADM IN [facility] [address] [place] [address] END OF REPORT
--- NOTE | 2020-03-18 14:11 | MORECARE ---
CASE MANAGEMENT DISCHARGE SUMMARY PATIENT: BROOKE ZHENG JR UNIT: [id number] ADM DATE: 03/08/20 AGE: 89 : [birth year] SEX: M ROOM/BED: D.2107 AUTHOR: JEZ,DOC PHYSICIAN: REFERRING PHYSICIAN: SHARI GILMORE MD DATE OF SERVICE: 03/18/20 Discharge Plan Patient Name: BROOKE ZHENG Facility: [facility]:[place] : 1930 Planned Disposition: Home Health Service Anticipated Discharge Date: 03/18/20 Discharge Date: Expected LOS: 10 Initial Reviewer: [email or web address] Initial Review Date: 03/08/2020 Generated: 03/18/20 3:11 pm Comments DCP- Discharge Planning Updated by [email or web address]: Suze Holguin on 03/18/20 1:[address] CM contacted Crystal with [facility], , [place] [phone], to resume [facility] for halfway, PT. Information provided verbal and faxed. will accept patient again. Patient's son will drive him home. Release of information signed by son and placed on the chart. DCP- Discharge Planning Updated by [email or web address]: Suze Holguin on 03/17/20 3:[address] [facility] contacted by Danette Vital NP regarding P2P. The insurance company has declined Inpatient Rehab, but would authorize a Skilled stay. The patient's son states he would rather take the patient home with [facility], at least for as long as can treat him. CM met with the patient's son, Betsy Zheng ([phone]), regarding a secondary plan, in case the P2P is unable to convince insurance of Rehab needs. Patient has [facility] [place] ([phone]) prior to admission. DME: natalie Ozuna/keven, shower chair, Home O2 with portability. Patient's son states that he always carries a portable O2 tank in his car for his father. Release of information signed for patient, per son, in case he needs to make other arrangements, later. Patient's son will drive patient home upon DC and to his MD appointments. P2P has been set up for this patient. #[phone], Marianela. The insurance MD has 24 H to respond . CM notified Carolyn Vital GASTROENTEROLOGY PROFESSOR of same. DCP- Discharge Planning Updated by [email or web address]: Siobhan Wolf on 03/12/20 1:[address] CM unable to meet with patient related to confusion. CM called David (son) at [phone]. Unable to leave message because the voice mail has not been set. up. CM will continue following and assisting with DC plans. Siobhan Wolf Coverage Notice Reviewer: [id number] Arslan Holguin Notice Issued Date-Time: 03/17/2020 14:07 Notice Type: IM Discharge Notice Notice Delivered To: Family Member Relationship to Patient: Son Car Seat Maker Name: Linwood Eden Delivery Method: HAND - Hand Delivered Natali Days: Prior Verbal Notification: Recipient Understood Notice: Yes Recipient Signature: Yes Med Rec Note Co-signed by Attending: Coverage Notice Comment: DC IMM signed per son. Last DP export: 03/18/20 12:57 pm Patient Name: BROOKE ZHENG Page 47996 at 1411 All edits/amendments must be made on the electronic document DICTATION DATE: 03/18/20 141 MARKETING COMMUNICATIONS MANAGER: RADHA 03/18/20 141 RPT#: [id number] DC DATE: STATUS: ADM IN [facility] [address] [place] [address] END OF REPORT
--- NOTE | 2020-03-18 15:28 | MORECARE ---
CASE MANAGEMENT DISCHARGE SUMMARY PATIENT: BROOKE ZEHNG JR UNIT: [id number] ADM DATE: 03/08/20 AGE: 89 : [birth year] SEX: M ROOM/BED: D.2102 AUTHOR: JEZ,DOC PHYSICIAN: REFERRING PHYSICIAN: SHARI GILMORE MD DATE OF SERVICE: 03/18/20 Discharge Plan Patient Name: BROOKE ZHENG Facility: [facility]:[place] : 1930 Planned Disposition: Home Health Service Anticipated Discharge Date: 03/18/20 Discharge Date: Expected LOS: 10 Initial Reviewer: [email or web address] Initial Review Date: 03/08/2020 Generated: 03/18/20 4:27 pm Comments DCP- Discharge Planning Updated by [id number]: Suze Holguin on 03/18/20 1:[address] CM contacted Crystal with [facility], , [place] [phone], to resume [facility] for long term, PT. Information provided verbal and faxed. will accept patient again. Patient's son will drive him home. Release of information signed by son and placed on the chart. DCP- Discharge Planning Updated by [email or web address]: Suze Holguin on 03/17/20 3:[address] [facility] contacted by Danette Vital NP regarding P2P. The insurance company has declined Inpatient Rehab, but would authorize a Skilled stay. The patient's son states he would rather take the patient home with [facility], at least for as long as can treat him. CM met with the patient's son, Betsy Zheng ([phone]), regarding a secondary plan, in case the P2P is unable to convince insurance of Rehab needs. Patient has [facility] [place] ([phone]) prior to admission. DME: natalie Ozuna/keven, shower chair, Home O2 with portability. Patient's son states that he always carries a portable O2 tank in his car for his father. Release of information signed for patient, per son, in case he needs to make other arrangements, later. Patient's son will drive patient home upon DC and to his MD appointments. P2P has been set up for this patient. #[phone], Marianela. The insurance MD has 24 H to respond . CM notified Carolyn Vital ANIMAL HUSBANDMAN of same. DCP- Discharge Planning Updated by [id number]: Siobhan Wolf on 03/12/20 1:[address] CM unable to meet with patient related to confusion. CM called David (son) at [phone]. Unable to leave message because the voice mail has not been set. up. CM will continue following and assisting with DC plans. Siobhan Wolf Coverage Notice Reviewer: [email or web address] Arslan Holguin Notice Issued Date-Time: 03/17/2020 14:07 Notice Type: IM Discharge Notice Notice Delivered To: Family Member Relationship to Patient: Son Court Reporter Name: Linwood Eden Delivery Method: HAND - Hand Delivered Natali Days: Prior Verbal Notification: Recipient Understood Notice: Yes Recipient Signature: Yes Med Rec Note Co-signed by Attending: Coverage Notice Comment: DC IMM signed per son. Last DP export: 03/18/20 1:11 pm Patient Name: BROOKE ZHENG Page [phone] at 1528 All edits/amendments must be made on the electronic document DICTATION DATE: 03/18/201527 SMOOTH STUCCO RESURFACER: RADHA 03/18/201527 RPT#: [id number] DC DATE: STATUS: ADM IN [facility] [address] [place] [address] END OF REPORT
--- NOTE | 2020-03-18 16:17 | NUR ---
D/C INSRUCTIONS REVIEWED WITH SON. VERBALIZED AGREEMENT. NO PIV TO REMOVE. PT LEFT VIA WHEELCHAIR WITH ALL BELONGINGS.
--- NOTE | 2020-03-23 11:29 | MORECARE ---
CASE MANAGEMENT DISCHARGE SUMMARY PATIENT: BROOKE ZHENG JR UNIT: [id number] ADM DATE: 03/08/20 AGE: 89 : [birth year] SEX: M ROOM/BED: D.2106 AUTHOR: JEZ,DOC PHYSICIAN: REFERRING PHYSICIAN: SHARI GILMORE MD DATE OF SERVICE: 03/23/20 Discharge Plan Patient Name: BROOKE ZHENG Facility: [facility]:[place] : 1930 Planned Disposition: Home Health Service Anticipated Discharge Date: 03/18/20 Discharge Date: 03/18/2020 Expected LOS: 10 Initial Reviewer: [email or web address] Initial Review Date: 03/08/2020 Generated: 03/23/20 12:29 pm Comments DCP- Discharge Planning Updated by [email or web address]: Suze Holguin on 03/18/20 1:[address] CM contacted Crystal with [facility], , [place] [phone], to resume [facility] for mcc, PT. Information provided verbal and faxed. will accept patient again. Patient's son will drive him home. Release of information signed by son and placed on the chart. DCP- Discharge Planning Updated by [email or web address]: Suze Holguin on 03/17/20 3:[address] [facility] contacted by Danette Vital NP regarding P2P. The insurance company has declined Inpatient Rehab, but would authorize a Skilled stay. The patient's son states he would rather take the patient home with [facility], at least for as long as can treat him. CM met with the patient's son, Betsy Zheng ([phone]), regarding a secondary plan, in case the P2P is unable to convince insurance of Rehab needs. Patient has [facility] [place] ([phone]) prior to admission. DME: natalie Ozuna/keven, shower chair, Home O2 with portability. Patient's son states that he always carries a portable O2 tank in his car for his father. Release of information signed for patient, per son, in case he needs to make other arrangements, later. Patient's son will drive patient home upon DC and to his MD appointments. P2P has been set up for this patient. #[phone], Marianela. The insurance MD has 24 H to respond . CM notified Carolyn Vital OCCUPATIONAL HEALTH NURSE SUPERVISOR of same. DCP- Discharge Planning Updated by [id number]: Siobhan Wolf on 03/12/20 1:[address] CM unable to meet with patient related to confusion. CM called David (son) at [phone]. Unable to leave message because the voice mail has not been set. up. CM will continue following and assisting with DC plans. Siobhan Wolf Coverage Notice Reviewer: [email or web address] Arslan Holguin Notice Issued Date-Time: 03/17/2020 14:07 Notice Type: IM Discharge Notice Notice Delivered To: Family Member Relationship to Patient: Son Teacher Vocational Training Name: Linwood Eden Delivery Method: HAND - Hand Delivered Natali Days: Prior Verbal Notification: Recipient Understood Notice: Yes Recipient Signature: Yes Med Rec Note Co-signed by Attending: Coverage Notice Comment: DC IMM signed per son. Last DP export: 03/18/20 2:28 pm Patient Name: BROOKE ZHENG Page [phone] at 1129 All edits/amendments must be made on the electronic document DICTATION DATE: 03/23/201128 COMMERCIAL REAL ESTATE ASSOCIATE: RADHA 03/23/20 1129 RPT#: [id number] DC DATE:03/18/20 STATUS: DIS IN [facility] [address] [place] [address] END OF REPORT
== END 2020-03-18 16:27 | disposition home health service (06) | DRG 193 ==
LOC: D.ER 10:06 → D.M2 11:52
PROVIDERS: Family Medicine; Internal Medicine Pulmonary Disease; Radiology Diagnostic Radiology; ADMIT Emergency Medicine; ATTEND Emergency Medicine
PROC: 0W993ZZ Drainage of Right Pleural Cavity, Percutaneous Approach (ICD-10-PCS; principal; 2020-03-10 15:08)
DX: J18.9 Pneumonia, unspecified organism (principal); J96.22 Acute and chronic respiratory failure with hypercapnia; J96.21 Acute and chronic respiratory failure with hypoxia; E43 Unspecified severe protein-calorie malnutrition; I50.33 Acute on chronic diastolic (congestive) heart failure; J90 Pleural effusion, not elsewhere classified; Z68.1 Body mass index [BMI] 19.9 or less, adult; I11.0 Hypertensive heart disease with heart failure; I08.0 Rheumatic disorders of both mitral and aortic valves; G72.89 Other specified myopathies

== ENCOUNTER 2020-04-01 11:56 | Inpatient (IN) | payer MEDICARE, MEDICAID ==
[~2020-04-01] VITALS: Ht 172.7 cm; Wt 51.3 kg
--- NOTE | ~2020-04-01 | HEMODYNAMI ---
PATIENT:BROOKE ZHENG JR MEDICAL RECORD: [id number] : [birth year] LOCATION:[facility] ADMISSION DATE: 04/01/20 Generatedon:04/08/202014:03 Patient name: BROOKE ZHENG Patient #: [id number] SSN: [id number] : 1930 Date of study: 04/08/2020 Page: Of Hemodynamic Procedure Report Patient Data Patient Demographics Procedure consent was obtained First Name: BROOKE Gender: Male Last Name: NORM Suffix: Patient #: [id number] : 1930 Age: 89 year(s) SSN: [id number] Race: Black Additional ID: [id number] Contact details Address: [address] [place] [address] State: [place] City: [place] Zip code: [address] Past Medical History Allergies Allergen Reaction Date Comments Reported Other allergy 04/08/2020 codeine Admission Admission Data Admission Date: 04/01/2020 Admission Time: 13:53 Arrival Date: 04/08/2020 Arrival Time: 0:00 Admit Source: Other Insurance Payor: Medicare Room #: D.2226 [facility] #: [id number] Height (in.): 68 BSA: 1.6 (m2) Height (cm.): 172.72 BMI: 17.18 (kg/m2) Weight (lbs.): 112.99 Weight (kg.): 51.25 Lab Results Lab Result Date: 04/08/2020 Lab Result Time: 0:00 Biochemistry Name Units Result Min Max BUN mg/dl 18 --(---*)-- 7 18 Creatinine mg/dl 1.1 --(--*-)-- 0.6 1.3 eGFR ml/min 81 *-(----)-- 90 120 AM CBC Name Units Result Min Max Hematocrit % 32.3 *-(----)-- 42 54 Hemoglobin g/dl 9.5 *-(----)-- 13.5 17.5 Procedure Procedure Types Cath Procedure Diagnostic Procedure PPM/ICD PPM Ventricular Implant Sedation Charges Moderate Sedation up to 15 minutes Procedure Description Procedure Date Procedure Date: 04/08/2020 Procedure Start Time: 13:40 Procedure End Time: 14:02 Procedure Staff Name Function Rojas Tamayo MD Performing Physician Francisco Wright MD Assisting physician Davina Ferrari RT Monitor Eve Cunningham RT Scrub Donna Mckenna RN Nurse Procedure Data Cath Procedure Fluoroscopy Diagnostic fluoroscopy Total fluoroscopy Time: 0.6 time: 0.6 min min Diagnostic fluoroscopy Total fluoroscopy dose: dose: 1007 mGy 1007 mGy Estimated blood loss: 10 ml Procedure Complications No complications Procedure Medications Medication Administration Route Dosage 0.9% NaCl I.V. 100 ml/hr Oxygen etCO2 Nasal cannula 2 l/min Lidocaine 1% added to field 20 Ancef (1Gm/50ml NS) I.V.P.B 1 g Ancef Irrigation Topical 1 g (1gm/500ml NS) Versed I.V. 0.5 mg Fentanyl I.V. 12.5 mg Hemodynamics Rest BSA: 1.6 (m2) O2 Consumption: Estimated: 198.68 (ml/min) O2 Consumption indexed: Estimated:124.17 (ml/min/m) Heart Rate: 100 (bpm) Snapshots Pre Cath Intra NCS Post Cath Vital Signs Time Heart Resp SPO2 etCO2 NIBP (mmHg) Rhythm Pain Sedation Rate (ipm) (%) (mmHg) Status Level (bpm) 13:32:47 91 38 97 0 Measuring NSR 0 (11) 9(A) , No pain 13:34:11 95 34 98 0 Time NSR 0 (11) 9(A) Exceeded , No pain 13:39:10 95 33 98 0 Measuring NSR 0 (11) 9(A) , No pain 13:40:34 96 34 96 0 Time NSR 0 (11) 9(A) Exceeded , No pain 13:44:46 97 32 96 0 Time NSR 0 (11) 9(A) Exceeded , No pain 13:50:32 98 34 97 0 Time NSR 0 (11) 9(A) Exceeded , No pain 13:53:28 100 30 98 0 179/116(154) NSR 0 (11) 9(A) , No pain 13:58:42 97 33 99 0 185/108(159) NSR 0 (11) 9(A) , No pain Medications Time Medication Route Dose Verified Delivered Reason Notes Effecti veness by by 13:18:48 0.9% NaCl I.V. 100 Rojas Donna used for ml/hr [facility] Cachorro Mckenna procedure RN 13:18:56 Oxygen etCO2 2 Rojas Donna used for Nasal l/min [facility] Cachorro Mckenna procedure cannula RN 13:19:08 Lidocaine added 20ml Francisco Singh for local 1% to vial Saim Wright MD anesthetic field x 2 13:19:26 Ancef I.V.P.B 1 g Zoroastrian Donna used for (1Gm/50ml Sami Mckenna procedure NS) RN 13:19:34 Ancef Topical 1 g Zoroastrian Donna used for Irrigation Sami Mckenna procedure (1gm/500ml RN NS) 13:36:36 Fentanyl I.V. 12.5 Zoroastrian Donna for mg Sami Mckenna sedation RN 13:36:54 Versed I.V. 0.5 Zoroastrian Donna for mg Sami Mckenna sedation general repair mechanic Log Time Note 12:42:50 Informed consent obtained and on chart 12:43:16 Procedure Status PPM/ Gen Change/ Lead Revision/ Temp. 12:43:17 Time tracking: Regular hours (M-F 7:00 - 5:00) 12:43:20 Plan of Care:Hemodynamics will remain stable., Cardiac rhythm will remain stable., Comfort level will be maintained., Respiratory function will remain adequate., Patient/ family verbilizes understanding of procedure., Procedure tolerated without complication., Recovers from procedure without complications.. 12:43:24 Eve Cunningham RT(R) sent for patient. Start room use. 12:46:20 Lab Result : eGFR AM 81 ml/min 12:46:20 Lab Result : Hemoglobin 9.5 g/dl 12:46:20 Lab Result : BUN 18 mg/dl 12:46:20 Lab Result : Creatinine 1.1 mg/dl 12:46:20 Lab Result : Hematocrit 32.3 % 12:46:24 Arrival Date: 04/08/2020 12:00:00 AM 12:46:25 Admit Source: Other 12:46:30 Insurance Payor : Medicare 12:46:45 Patient Height : 68 inches 12:46:52 Patient Weight : 112.99 lbs 12:48:21 H&P Date Dictated: 04/07/2020 Within 30 days and on chart.. 12:48:22 Pre-procedure instructions explained to patient. 12:48:22 Pre-op teaching completed and patient verbalized understanding. 12:48:24 Family unavailable. 12:48:25 Patient NPO since Midnight. 12:48:35 Patient allergic to Other allergycodeine 12:48:41 Lab results completed and on chart. 12:48:44 Stress Test: no; N/A ? 12:48:45 Alarms reviewed by R. N. 12:48:46 Sharps counted by scrub and verified by R.N. 12:48:55 Use device set SAMI PPM 12:49:17 2-0 Ticron Multipack ([id number]) opened to sterile field. 12:49:17 3-0 Vicryl Single Pack [id number] opened to sterile field. 12:49:18 5-0 Monocryl PS2 [id number] opened to sterile field. 12:49:19 Cautery Tip Senior Treasury Consultant opened to sterile field. 12:49:21 Cautery Pushbutton Pencil opened to sterile field. 12:49:21 Mepilex Dressing (339180) opened to sterile field. 13:11:53 Patient received from Med II to CCL 3 Alert and oriented. Tansferred to table in Supine position. 13:11:54 Warm blankets applied, and ferdinand hugger turned on for patient comfort. 13:11:54 Correct patient and procedure confirmed by team. 13:11:55 ECG and BP/O2 sat monitors applied to patient. 13:12:01 Is the patient allergic to Iodine/contrast media? No. 13:12:03 Was the patient premedicated? N/A 13:18:48 0.9% NaCl 100 ml/hr I.V. was administered by Donna Mckenna RN; used for procedure; Verbal order read back and verified. 13:18:56 Oxygen 2 l/min etCO2 Nasal cannula was administered by Donna Mckenna RN; used for procedure; Verbal order read back and verified. 13:19:08 Lidocaine 1% 20ml vial x 2 added to field was administered by Francisco Wright MD; for local anesthetic; Verbal order read back and verified. 13:19:26 Ancef (1Gm/50ml NS) 1 g I.V.P.B was administered by Donna Mckenna RN; used for procedure; Verbal order read back and verified. 13:19:34 Ancef Irrigation (1gm/500ml NS) 1 g Topical was administered by Donna Mckenna RN; used for procedure; Verbal order read back and verified. 13:30:58 Vital chart was started 13:33:07 Is patient on blood thinner?No 13:34:49 Patient diabetic? Yes. 13:34:51 If diabetic: On Metformin? No 13:34:53 ----Pre-sedation anethsthesia assessment.---- 13:34:57 Previous problem with sedation/anesthesia? N/A ? 13:35:01 Snore? Yes 13:35:02 Sleep apnea? Unknown 13:35:03 Deviated septum? No 13:35:05 Opens mouth fully? Yes 13:35:06 Sticks out tongue? Yes 13:35:08 Airway obstruction? Unknown ? 13:35:10 Dentures? No ? 13:35:19 IV patent on arrival in left forearm with 0.9% NaCl at [facility]. 13:35:27 Left chest area was prepped with chlora-prep and draped in sterile fashion 13:35:33 --------ALL STOP TIME OUT------ 13:35:34 Final Timeout: patient, procedure, and site verified with staff and physician. All members of the team are in agreement. 13:35:37 Left chest site verified by team. 13:35:40 Fire Safety Assessment: A--An alcohol-based skin anteseptic being used preoperatively., C--Open oxygen or nitrous oxide is being used., D--An ESU, laser, or fiber-optic light is being used. 13:35:44 Physical assessment completed. ASA score P 2 - A patient with mild systemic disease as per Rojas Tamayo MD. 13:35:48 Sedation plan: IV Moderate Sedation Medication:Versed, Fentanyl 13:36:36 Fentanyl 12.5 mg I.V. was administered by Donna Mckenna RN; for sedation; Verbal order read back and verified. 13:36:36 Grounding pad site Left thigh. 13:36:37 Grounding pad site free from injury. 13:36:48 [facility] FRANKLIN ILYA present for procedure. 13:36:54 Versed 0.5 mg I.V. was administered by Donna Mckenna RN; for sedation; Verbal order read back and verified. 13:36:58 Pre sharps counted by scrub and verified by RN: Sutures: 7; Sponges: 5; Stick needles: 2; Skin needles: 2; Blade: 1; Cautery: 1 13:39:59 Procedure started. 13:39:59 Full Disclosure recording started 13:40:13 Lidocaine 1% was administered to left subclavicular area by Francisco Wright MD . 13:40:33 Immobilizer Sling Small opened to sterile field. 13:40:39 Medtronic 4074-52 PPM Lead opened to sterile field. 13:41:06 Vital chart was stopped 13:42:25 Incision made to left subclavicular area. 13:43:13 Medtronic 4574-45 PPM Lead opened to sterile field. 13:43:19 Generator pocket made/opened. 13:43:37 Baseline sample Acquired. 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 13:46:03 Pt arrived to CL from Med Surg on 8L HFNC. Pt Ox1 and DARION to answer pre-sedation questions. DARION EtCO2 d/t HFNC. DARION to register BP after multiple attempts at BP cuff repositioning. 13:47:56 Ventricular lead inserted and advanced. 13:47:59 Ventricular lead positioned. 13:48:34 Ventricular lead tested. 13:48:49 Peel-a-way sheath was split and removed. 13:49:07 Ventricular lead attachment was completed with 2-0 ticron. 13:50:20 Medtronic Adapta PPM Single Generator [id number] opened to sterile field. 13:51:56 PPM Single was inserted subcutaneously to left chest. 13:52:48 Generator was sutured in place with 2-0 ticron. 13:52:58 Device pocket was irrigated with Ancef. 13:53:09 Subcutaneous closure was completed with 3-0 vicryl. 13:53:20 Skin closure was completed with 5-0 monocryl. 13:57:25 Post sharps counted by scrub and verified by RN: Sutures: 3; Sponges: 5; Stick needles: 2; Skin needles: 2; Blade: 1; Cautery: 1 13:58:46 Lt Chest incision was dressed with Mepilex dressing. 13:58:57 Procedure ended.(Physican Out) 13:59:10 Fluoroscopy time 00.60 minutes. 13:59:45 Fluoroscopy dose: 1007 mGy 13:59:45 Flurop Dose total: 1007 13:59:48 Dose Area Product 8.18 mGy/cm. 13:59:50 Sharps counted by scrub and verified by R.N. 14:00:14 Estimated blood loss: 10 ml 14:00:24 Post procedure instruction explained to patient.Patient verbalizes understanding. 14:00:24 Patient needs reinforcement of post procedure teaching. 14:00:51 Procedure type changed to Cath procedure, Diagnostic procedure, PPM/ICD, PPM Ventricular Implant, Sedation Charges, Moderate Sedation up to 15 minutes 14:01:30 Procedure and supply charges have been captured, reviewed, submitted and are correct. 14:01:35 Procedure Complication : No complications 14:01:44 Operative report dictated upon procedure completion. 14:01:44 See physician's report for complete and final results. 14:02:09 Report given to Med II. 14:02:13 Patient transfered to Med II with Bed. 14:02:15 Procedure ended. 14:02:15 Full Disclosure recording stopped 14:02:17 End room use (Document Last) 14:02:17 End room use (Document Last) 14:02:29 End room use (Document Last) 14:03:04 End room use (Document Last) Device Usage Item Name Manufacture Quantity Catalog Hospital Part Current Minimal Lot# / Number Charge Number Stock Stock Serial# Code 2-0 Ticron Ethicon 4 [id number] [id number] 77811 [id number] 5 Multipack ([id number]) 3-0 Vicryl Ethicon 1 [id number] 385252 070107 800347 5 Single Pack [id number] 5-0 Monocryl Ethicon 1 [id number] 955652 488116 288469 5 PS2 Y495G Cautery Tip Microtek 1 [id number] 489618 867382 997427 5 [employer] Cautery Microtek 1 [id number] 885136 61862 310009 5 Push[employer] Pencil Mepilex Cardinal 1 630523 548526 496906 166201 5 [facility] ([id number]) Immobilizer Cardinal 1 [id number] 277550 621863 [id number] 5 Sling Small Health Medtronic Medtronic 1 4074-52 029265 014060 804844 5 4074-52 PPM [id number] Lead EXP: 06/20/2020 Medtronic Medtronic 1 4574-45 688812 516373 416888 5 4574-45 PPM [id number] Lead EXP: 06/20/2020 Medtronic Medtronic 1 [id number] 869062 256998 [id number] 5 Adapta PPM [id number] Single EXP: Generator 06/26/2021 [id number] Signature Audit [place] Stage Time Signature Unsigned Intra-Procedure 04/08/2020 Davina Ferrari 2:02:29 PM RT(R) Intra-Procedure 04/08/2020 Donna Mckenna 2:03:04 PM RN Intra-Procedure 04/08/2020 Rojas Richard 2:03:26 PM [place] [address] [place] [address]
--- NOTE | ~2020-04-01 | EC ---
PATIENT:BROOKE ZHENG JR DATE OF SERVICE: 04/01/20 SEX: M MEDICAL RECORD: [id number] DATE OF : [birth year] LOCATION:[facility] AGE OF PATIENT: 89 ADMISSION DATE: 04/01/20 REFERRING PHYSICIAN: INTERPRETING PHYSICIAN: ANTONIETA CALIX MD ECHOCARDIOGRAM REPORT ECHO CHARGES 4 ECHO COMPLETE Date: 04/03/20 CLINICAL DIAGNOSIS: AMYOIDOSIS ECHOCARDIOGRAPHIC MEASUREMENTS (adult normal given) AC root (d.<3.7cm) 0 cm LV Septum d (<1.2 cm> 0 cm Valve Excursion 0 cm LV Septum (systole) 0 cm Left Atria (s.<4.0cm> 0 cm LVPW d(<1.2cm) 0 cm RV (d.<2.3cm) 0 cm LVPW (sytole) 0 cm LV diastole(<5.6CM) 0 cm MV E-F(>70mm/sec) 0 cm LV systole 0 cm LVOT Diameter 0 cm MV exc.(>10mm) 0 cm Est.ejection fraction (50-75%) % DOPPLER: LVIT cm/sec A 0 cm/sec E 0 cm/sec LA 0 cm/sec RVSP 56.1 mmHg LVOT 0 cm/sec AOP1/2T m/s Asc. Ao 0 cm/sec RVOT 0 cm/sec RA 0 cm/sec PA 0 cm/sec AV Gradient Peak 0 mmHg AV Mean 0 mmHg AV Area 0 cm MV Gradient Peak 0 mmHg MV Mean 0 mmHg MV Area 0 cm COMMENTS: Cable Swager: Deshawn GAINES President Practicing Urologist: Yaron Calix TAPE# PACS Pericardial Effusion N DATE OF SERVICE: PROCEDURE: Transthoracic echocardiogram. FINDINGS: 1. 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 There is a restricted filling pattern. 2. Left atrium is normal in size, shape, structure, and function. 3. The mitral valve has normal structure and function. ECHOCARDIOGRAM REPORT [id number] BROOKE ZHENG JR 4. Tricuspid valve has mild tricuspid valve regurgitation. The right ventricular systolic pressures have come down. There are in the 50 to 55 mmHg range. TRANSINT:[id number] Voice Confirmation ID: [id number] DOCUMENT ID: [id number] ANTONIETA CALIX MD CC: [id number] DICTATION DATE: 04/04/20 1105 CANVAS MARKER: 04/04/20 1559 ADM IN [facility] [address] [id number]
[~2020-04-01 11:56] MED LIST: LASIX20 MG PO; OMNICEF300 MG PO; POTASSIUM CHLO10 ME1 PO; ZITHROMAX250 MG PO
[2020-04-01 12:30] VITALS: BP 157/82
[2020-04-01 12:39] LABS: BASOPHILS 0 % (0-2); EOSINOPHILS 0.2 % (0-7); HEMATOCRIT 33.4 % (42.0-54.0); HEMOGLOBIN 10.1 g/dL (13.5-17.5); IMMATURE GRANULOCYTES 0.4 % (0-5); LYMPHOCYTES 38.4 % (15-50); MCH 23.9 pg (26.0-34.0); MCHC 30.2 g/dL (31.0-37.0); MEAN PLATELET VOLUME 9.3 fL (7.4-10.4); MONOCYTES 8.4 % (2-11); NEUTROPHILS 52.6 % (40-80); PLATELET COUNT 195 10x3/uL (130-400); RBC 4.23 10x6/uL (4.20-6.10); RDW 22.1 % (11.5-14.5); WBC 4.5 10x3/uL (4.8-10.8)
[2020-04-01 12:49] LABS: INR 1.18 (0.85-1.17)
[2020-04-01 12:58] LABS: CALC OSMOLALITY 283 mosm/kg (275-300); CARBON DIOXIDE 29.3 mmol/L (21.0-32.0); CHLORIDE - SERUM 104 mmol/L (98-107); CREATININE - SERUM 1.5 mg/dL (0.6-1.3); GLUCOSE 114 mg/dL (74-106); POTASSIUM - SERUM 3.9 mmol/L (3.5-5.1); SODIUM 140 mmol/L (136-145); UREA NITROGEN 24 mg/dL (7-18); eGFR NON AFRICAN AMERICAN 47 mL/min (90-120)
[2020-04-01 13:00] VITALS: BP 136/73
[2020-04-01 13:15] LABS: ALBUMIN 2.1 g/dL (3.4-5.0); ALKALINE PHOSPHATASE 61 U/L (30-120); ALT (SGPT) 17 U/L (10-68); BILIRUBIN - TOTAL 0.41 mg/dL (0.2-1.3); CKMB 0.2 U/L (0.0-3.6); CREATINE KINASE 34 UL (21-232); PRO BNP 2214 pg/mL (0-450); PROTEIN - SERUM 7.8 g/dL (6.4-8.2); TROPONIN-I 0.022 ng/mL (0.000-0.060)
[2020-04-01 13:30] VITALS: BP 130/69
[2020-04-01 14:00] VITALS: BP 139/67
[2020-04-01 14:45] VITALS: BP 129/72
--- NOTE | 2020-04-01 15:30 | NUR ---
TO IVR WITH HAJA WALKER. WILL BE TAKEN TO PT ROOM AFTER PROCEDURE.
--- NOTE | 2020-04-01 17:27 | NUR ---
I have reviewed this patient and I concur with the Shift Assessment completed by the Licensed Practical Nurse today this shift.
[2020-04-01 17:32] LABS: PROTEIN - BODY FLUID 5.9 G/DL
[2020-04-01 17:38] LABS: MACROPHAGES BF 16 %; NEUT - BF 2 %
[2020-04-01 20:00] VITALS: BP 140/75
[2020-04-02] VITALS: BP 146/80
[2020-04-02 01:34] VITALS: BP 140/75; BMI 17.2
--- NOTE | 2020-04-02 03:50 | NUR ---
ASSESSED AT THE BEGINNING OF THE SHIFT. PT IS ABLE TO VERBALIZE NEEDS AND CALL LIGHT IS IN PLACE. HE IS WEARING A VENTI MASK AT 40% AND HIS O2 IS SHOWING 94-96%. WE HAVE GIVEN HIM HIS MEDICATIONS AND ALSO A COMPLETE BED BATH. THE SMALL AREA TO BACK FROM THE THORACENTISIS INCISION IS COVERED WITH A DRESSING. WHILE GIVING A BATH WE APPLIED A COMDOM CATH.
[2020-04-02 04:00] VITALS: BP 147/84
--- NOTE | 2020-04-02 06:59 | NUR ---
CONDOM CATH CAME OFF AND A NEW ONE WAS PLACED IN A ATTEMPT TO KEEP PT DRY. COMPLETE BED CHANGE AGAIN.
[2020-04-02 07:58] LABS: BASOPHILS 0 % (0-2); HEMATOCRIT 32.8 % (42.0-54.0); LYMPHOCYTES 28.6 % (15-50); MCH 23.8 pg (26.0-34.0); MCHC 30.5 g/dL (31.0-37.0); MCV 78.1 fL (80.0-100.0); MONOCYTES 5.7 % (2-11); NEUTROPHILS 63.7 % (40-80); PLATELET COUNT 159 10x3/uL (130-400); WBC 3.5 10x3/uL (4.8-10.8)
[2020-04-02 08:09] VITALS: BP 158/75
[2020-04-02 08:16] LABS: CALCIUM 7.5 mg/dL (8.5-10.1); CARBON DIOXIDE 28.7 mmol/L (21.0-32.0); MAGNESIUM - SERUM 1.5 mg/dL (1.8-2.4); PHOSPHOROUS 4.2 mg/dL (2.5-4.9); POTASSIUM - SERUM 3.7 mmol/L (3.5-5.1); PROTEIN - SERUM 6.8 g/dL (6.4-8.2)
[2020-04-02 08:18] LABS: CREATININE - SERUM 1.1 mg/dL (0.6-1.3)
--- NOTE | 2020-04-02 10:41 | NUR ---
PHYSICAL THERAPY STUDENTS IN WITH PT THIS MORNING, PT IS MOHEGAN AND WC BOUND. RELAYED INFORMATION TO STUDENTS. PT IS A POOR HISTORIAN AND NO FAMILY AT BEDSIDE, GAVE STUDENTS MUCH INFORMATION I HAD PT IS TIMID AND HAD LAB IN THERE PRIOR AND IS FLUSTERD BY CONFUSION EXPRESSION AND RAPID BREATHING. ASKED LAB AND PHYSICAL THERAPY TO GIVE PATIENT SPACE. CONTINUE WITH PLAN OF CARE
[2020-04-02 10:59] LABS: INR 1.15 (0.85-1.17); PROTIME 14.7 SECONDS (11.6-15.0)
[2020-04-02 12:12] VITALS: BP 165/85
--- NOTE | 2020-04-02 12:25 | NUR ---
RESTING,WITHOUT NEEDS.CALL LIGHT IN REACH
[2020-04-02 13:58] VITALS: BMI 17.1
[2020-04-02 15:37] VITALS: BP 150/78
[2020-04-03 04:00] VITALS: BP 149/79
--- NOTE | 2020-04-03 04:39 | NUR ---
ASSESSED AT THE BEGINNING OF THE SHIFT. PT IS ALERT AND ORIENTED BUT VERY [place] AND YOU NEED TO TALK LOUD AND SLOW. AFTER TAKING HS MEDS HE SLEPT FOR AWHILE AND THEN WE WOKE HIM UP AND CHANGED HIS LINENS AND CLEANED HIM UP FROM URINE. HE THEN DECIDED HE WAS HUNGRY AND ATE A SMALL AMT OF WELL CUT UP SANDWICH WHICH HE ENJOYED. HE IS ABLE TO TURN AND ASSIST WITH US WHEN WE ARE CHANGING LINENS. AT THIS TIME HE IS BACK ASLEEP WITH O2 AT 4 LITERS PER HFNC.
[2020-04-03 06:48] LABS: BASOPHILS 0 % (0-2); EOSINOPHILS 0.2 % (0-7); HEMATOCRIT 31.1 % (42.0-54.0); HEMOGLOBIN 9.2 g/dL (13.5-17.5); IMMATURE GRANULOCYTES 0.4 % (0-5); LYMPHOCYTES 32.9 % (15-50); MCH 23.7 pg (26.0-34.0); MCHC 29.6 g/dL (31.0-37.0); MCV 79.9 fL (80.0-100.0); MONOCYTES 7.1 % (2-11); NEUTROPHILS 59.4 % (40-80); PLATELET COUNT 174 10x3/uL (130-400); RBC 3.89 10x6/uL (4.20-6.10); RDW 22.2 % (11.5-14.5)
[2020-04-03 06:51] LABS: WBC 4.9 10x3/uL (4.8-10.8)
[2020-04-03 07:07] LABS: CALC OSMOLALITY 288 mosm/kg (275-300); CALCIUM 7.6 mg/dL (8.5-10.1); CARBON DIOXIDE 26.8 mmol/L (21.0-32.0); CHLORIDE - SERUM 110 mmol/L (98-107); GLUCOSE 92 mg/dL (74-106); MAGNESIUM - SERUM 1.6 mg/dL (1.8-2.4); POTASSIUM - SERUM 3.6 mmol/L (3.5-5.1); SODIUM 144 mmol/L (136-145); UREA NITROGEN 19 mg/dL (7-18); eGFR NON AFRICAN AMERICAN 75 mL/min (90-120)
[2020-04-03 08:15] VITALS: BP 165/81
--- NOTE | 2020-04-03 08:21 | NUR ---
SON HERE, UPDATED ON PT, CONT TO MONITOR SWALLOW AND LUNG SOUNDS, RESTING IN BED, NO DISTRES SNOTED
--- NOTE | 2020-04-03 10:40 | NUR ---
UP IN CHAIR, CONT TO MONITOR SAFETY
[2020-04-03 11:26] VITALS: Ht 172.7 cm; Wt 51.3 kg
[2020-04-03 13:47] VITALS: BP 141/77
[2020-04-03 17:37] VITALS: BP 155/84
--- NOTE | 2020-04-03 19:00 | NUR ---
PATIENT ALERT AND ORIENTED TO SELF AND SITUATION, BUT NOT TIME AND PLACE. PATIENT EXTREMELY HARD OF HEARING, THIS NURSE MUST TALK VERY CLOSELY TO PATIENT LEFT EAR TO COMMUNICATE. PATIENT ANSWERS QUESTIONS APPROPRIATELY. DENIES PAIN OR DISCOMFORT AT THIS TIME. ASSESSMENT PERFORMED, SEE CHART. FALL PRECAUTIONS IN PLACE. CALL LIGHT CLOSE. DOOR OPEN FOR CONTINUAL MONITORING. CPOC.
[2020-04-03 20:00] VITALS: BP 143/78
[2020-04-04] VITALS (7 sets, daily range): BP systolic 148–171; BP diastolic 74–103
--- NOTE | 2020-04-04 01:57 | NUR ---
INCONTINENT OF URINE. BED BATH AND BED CHANGE PROVIDED. CALL LIGHT REMAINS CLOSE. FALL PRECAUTIONS REMAIN IN PLACE. CPOC.
[2020-04-04 07:27] LABS: CALC OSMOLALITY 292 mosm/kg (275-300); CALCIUM 7.5 mg/dL (8.5-10.1); CARBON DIOXIDE 28.4 mmol/L (21.0-32.0); CHLORIDE - SERUM 110 mmol/L (98-107); CREATININE - SERUM 0.9 mg/dL (0.6-1.3); GLUCOSE 72 mg/dL (74-106); MAGNESIUM - SERUM 1.5 mg/dL (1.8-2.4); PHOSPHOROUS 2.4 mg/dL (2.5-4.9); POTASSIUM - SERUM 3.1 mmol/L (3.5-5.1); SODIUM 147 mmol/L (136-145); UREA NITROGEN 18 mg/dL (7-18); eGFR NON AFRICAN AMERICAN 84 mL/min (90-120)
[2020-04-04 07:41] LABS: BASOPHILS 0 % (0-2); EOSINOPHILS 0.3 % (0-7); HEMATOCRIT 29.5 % (42.0-54.0); HEMOGLOBIN 8.8 g/dL (13.5-17.5); IMMATURE GRANULOCYTES 0.3 % (0-5); LYMPHOCYTES 32.3 % (15-50); MCH 23.2 pg (26.0-34.0); MCHC 29.8 g/dL (31.0-37.0); MONOCYTES 7.9 % (2-11); NEUTROPHILS 59.2 % (40-80); PLATELET COUNT 186 10x3/uL (130-400); RBC 3.79 10x6/uL (4.20-6.10); RDW 21.8 % (11.5-14.5); WBC 3.8 10x3/uL (4.8-10.8)
[2020-04-04 07:52] LABS: MCV 77.8 fL (80.0-100.0)
[2020-04-04 15:08] LABS: ACID FAST SMEAR Negative (()); AFB SPECIMEN PROCESSING Not Indicated (())
--- NOTE | 2020-04-04 15:12 | NUR ---
TELEMETRY APPLIED RUNNING AFIB 95.
--- NOTE | 2020-04-04 20:00 | NUR ---
PATIENT ALERT AND ORIENTED TO SELF. PATIENT IS EXTREMELY HARD OF HEARING BUT ANSWERS QUESTIONS WHEN SPEAKING DIRECTLY INTO PATIENTS LEFT EAR. ASSESSMENT PERFORMED, SEE CHART. PATIENT TACHYPNIC AND COARSE RALES NOTED UPON ASSESSMENT. CALL TO RESPIRATORY THERAPIST FOR PRN BREATHING TREATMENT. STATS IMPROVING AFTER TREATMENT. CALL LIGHT CLOSE. DOOR OPEN FOR CONTINUAL MONITORING. CPOC.
[2020-04-05 00:16] VITALS: BP 147/47
[2020-04-05 04:30] VITALS: BP 148/75
[2020-04-05 06:44] LABS: BASOPHILS 0 % (0-2); EOSINOPHILS 0.5 % (0-7); HEMATOCRIT 30.6 % (42.0-54.0); HEMOGLOBIN 9.3 g/dL (13.5-17.5); IMMATURE GRANULOCYTES 0.3 % (0-5); LYMPHOCYTES 24.2 % (15-50); MCH 23.4 pg (26.0-34.0); MCHC 30.4 g/dL (31.0-37.0); MCV 77.1 fL (80.0-100.0); MEAN PLATELET VOLUME 9.4 fL (7.4-10.4); MONOCYTES 6.7 % (2-11); NEUTROPHILS 68.3 % (40-80); PLATELET COUNT 199 10x3/uL (130-400); RBC 3.97 10x6/uL (4.20-6.10); RDW 21.6 % (11.5-14.5); WBC 3.9 10x3/uL (4.8-10.8)
[2020-04-05 07:27] LABS: % SATURATION 10 % (15-55); IRON 11 ug/dl (35-150); TOTAL IRON BIND CAPACITY 110 ug/dl (260-445); UNSAT IRON BIND CAPACITY 99 ug/dl (150-375)
[2020-04-05 08:54] VITALS: BP 180/98
[2020-04-05 09:25] LABS: CALC OSMOLALITY 288 mosm/kg (275-300); CALCIUM 7.7 mg/dL (8.5-10.1); CARBON DIOXIDE 25.3 mmol/L (21.0-32.0); CHLORIDE - SERUM 111 mmol/L (98-107); CREATININE - SERUM 0.9 mg/dL (0.6-1.3); FERRITIN 707 ng/mL (3-244); GLUCOSE 104 mg/dL (74-106); POTASSIUM - SERUM 3.4 mmol/L (3.5-5.1); SODIUM 144 mmol/L (136-145); UREA NITROGEN 17 mg/dL (7-18); eGFR NON AFRICAN AMERICAN 84 mL/min (90-120)
[2020-04-05 09:29] LABS: MAGNESIUM - SERUM 1.9 mg/dL (1.8-2.4)
--- NOTE | 2020-04-05 09:45 | NUR ---
I have reviewed this patient and I concur with the Shift Assessment completed by the Licensed Practical Nurse today this shift.
[2020-04-05 13:05] VITALS: BP 165/95
[2020-04-05 14:09] LABS: FUNGUS STAIN Final report (())
--- NOTE | 2020-04-05 14:21 | NUR ---
Nutrition follow-up: Visited with pt and son during breakfast. Pt with fair po intake; sitting on the side of bed. Pt now receiving a regular mechanical soft diet with ground meat and 1:1 feeding assistance. Son is providing assistance with breakfast. Pt drinking Ensure. Pt very [place]. Labs reviewed Wt: 113# Will continue to provide food choices and honor food preferences within diet modification. RDN following.
[2020-04-05 16:09] LABS: IMMUNOFIXATION Note: (()); IMMUNOGLOBULIN A 1154 mg/dL (61-437); IMMUNOGLOBULIN G 1901 mg/dL (603-1613); IMMUNOGLOBULIN M 116 mg/dL (15-143)
[2020-04-05 17:37] VITALS: BP 184/84
[2020-04-05 18:08] LABS: SPE - A/G RATIO 0.5 (0.7-1.7); SPE - ALBUMIN 2.1 g/dL (2.9-4.4); SPE - ALPHA-1 GLOBULIN 0.3 g/dL (0.0-0.4); SPE - BETA GLOBULIN 1.1 g/dL (0.7-1.3); SPE - GAMMA GLOBULIN 2.1 g/dL (0.4-1.8); SPE - M-SPIKE Not Observed g/dL (Not Observed); SPE - TOTAL PROTEIN 6.7 g/dL (6.0-8.5)
[2020-04-05 22:03] VITALS: BP 164/40
[2020-04-06] VITALS: BP 154/77
[2020-04-06 04:00] VITALS: BP 136/85
[2020-04-06 07:24] LABS: BASOPHILS 0.3 % (0-2); EOSINOPHILS 1.4 % (0-7); HEMATOCRIT 35.5 % (42.0-54.0); HEMOGLOBIN 10.6 g/dL (13.5-17.5); IMMATURE GRANULOCYTES 0.3 % (0-5); LYMPHOCYTES 15.4 % (15-50); MCH 23.3 pg (26.0-34.0); MCHC 29.9 g/dL (31.0-37.0); MONOCYTES 10.6 % (2-11); PLATELET COUNT 192 10x3/uL (130-400); RBC 4.55 10x6/uL (4.20-6.10); WBC 3.6 10x3/uL (4.8-10.8)
--- NOTE | 2020-04-06 07:30 | NUR ---
REC'D IN BED AWAKE AND ALERT. RESP EVEN AND UNLABORED WITH NO DISTRESS NOTED. CAN EXPRESS NEEDS AND WANTS. PT IS VERY [place], BUT WHEN HE UNDERSTAND WHAT YOU ARE ASKING HE ANSWER APPROPRIATELY. ASSESMENT COMPLETED. C/L IN REACH AT BEDSIDE.
[2020-04-06 07:42] LABS: CALC OSMOLALITY 291 mosm/kg (275-300); CALCIUM 8.2 mg/dL (8.5-10.1); CARBON DIOXIDE 30.3 mmol/L (21.0-32.0); CHLORIDE - SERUM 110 mmol/L (98-107); GLUCOSE 87 mg/dL (74-106); MAGNESIUM - SERUM 1.8 mg/dL (1.8-2.4); PHOSPHOROUS 3.5 mg/dL (2.5-4.9); POTASSIUM - SERUM 3.4 mmol/L (3.5-5.1); SODIUM 146 mmol/L (136-145); UREA NITROGEN 17 mg/dL (7-18); eGFR NON AFRICAN AMERICAN 75 mL/min (90-120)
[2020-04-06 09:12] LABS: ANA REFLEX - DIRECT Negative (Negative)
[2020-04-06 11:03] VITALS: BP 141/83
[2020-04-06 15:00] VITALS: BP 165/91
[2020-04-06 15:15] VITALS: BP 127/80
--- NOTE | 2020-04-06 15:39 | NUR ---
I have reviewed this patient and I concur with the Shift Assessment completed by the Licensed Practical Nurse today this shift.
[2020-04-06 20:00] VITALS: BP 189/89
--- NOTE | 2020-04-07 00:12 | NUR ---
I have reviewed this patient and I concur with the Shift Assessment completed by the Licensed Practical Nurse today this shift.
[2020-04-07 04:00] VITALS: BP 178/90
--- NOTE | 2020-04-07 09:34 | NUR ---
THIS NURSE GOT PT UP AND INTO SHOWER ON THIS AM. LINEN CHANGED AND PT ASSISTED BACK TO BED. C/L IN REACH AT BEDSIDE.
[2020-04-07 09:58] VITALS: BP 144/102
[2020-04-07 10:49] LABS: BASOPHILS 0.3 % (0-2); HEMATOCRIT 32.3 % (42.0-54.0); HEMOGLOBIN 9.5 g/dL (13.5-17.5); IMMATURE GRANULOCYTES 0.3 % (0-5); LYMPHOCYTES 12.4 % (15-50); MCH 23.3 pg (26.0-34.0); MCHC 29.4 g/dL (31.0-37.0); MCV 79.2 fL (80.0-100.0); MEAN PLATELET VOLUME 8.9 fL (7.4-10.4); MONOCYTES 10.8 % (2-11); NEUTROPHILS 75.2 % (40-80); PLATELET COUNT 205 10x3/uL (130-400); RBC 4.08 10x6/uL (4.20-6.10); RDW 21.6 % (11.5-14.5); WBC 3.9 10x3/uL (4.8-10.8)
[2020-04-07 11:08] LABS: ANION GAP 11.1 mmol/L (8-16); CALCIUM 7.8 mg/dL (8.5-10.1); CARBON DIOXIDE 29.6 mmol/L (21.0-32.0); CREATININE - SERUM 1.1 mg/dL (0.6-1.3); MAGNESIUM - SERUM 1.7 mg/dL (1.8-2.4); PHOSPHOROUS 3.5 mg/dL (2.5-4.9); POTASSIUM - SERUM 3.7 mmol/L (3.5-5.1)
[2020-04-07 13:33] VITALS: BP 160/78
--- NOTE | 2020-04-07 14:10 | MORECARE ---
CASE MANAGEMENT DISCHARGE SUMMARY PATIENT: BROOKE ZHENG JR UNIT: [id number] ADM DATE: 04/01/20 AGE: 89 : [birth year] SEX: M ROOM/BED: D.2226 AUTHOR: CAROL STORY PHYSICIAN: REFERRING PHYSICIAN: ERIN RANGEL MD DATE OF SERVICE: 04/07/20 Discharge Plan Patient Name: BROOKE ZHENG [facility] [facility] 1930 Planned Disposition: Anticipated Discharge Date: Discharge Date: Expected LOS: Initial Reviewer: [email or web address] Initial Review Date: 04/07/2020 Generated: 04/07/20 3:09 pm Patient Name: BROOKE ZHENG Page [phone] at 1410 All edits/amendments must be made on the electronic document DICTATION DATE: 04/07/20 1409 TOUCH UP PAINTER: RADHA 04/07/20 1409 RPT#: [id number] DC DATE: STATUS: ADM IN [facility] [address] [place] [address] END OF REPORT
--- NOTE | 2020-04-07 14:27 | MORECARE ---
CASE MANAGEMENT DISCHARGE SUMMARY PATIENT: BROOKE ZHENG JR UNIT: [id number] ADM DATE: 04/01/20 AGE: 89 : [birth year] SEX: M ROOM/BED: D.2226 AUTHOR: CAROL STORY PHYSICIAN: REFERRING PHYSICIAN: ERIN RANGEL MD DATE OF SERVICE: 04/07/20 Discharge Plan Patient Name: BROOKE ZHENG [facility] [facility] 1930 Planned Disposition: Anticipated Discharge Date: Discharge Date: Expected LOS: Initial Reviewer: [email or web address] Initial Review Date: 04/07/2020 Generated: 04/07/20 3:26 pm Comments DCP- Discharge Planning Updated by [email or web address]: Marine Campa on 04/07/20 1:[address] Patient Name: BROOKE ZHENG Admission Status: ER Accout number: [id number] Admission Date: 04-01-2020 : 1930 Admission Diagnosis:AMYLOIDOSIS, UNSPECIFIED Attending: ERIN RANGEL Current LOS: 6 Anticipated DC Date: Planned Disposition: Primary Insurance: [facility] MEDICARE SOLUTIONS Discharge Planning Comments: PT PRESENTS IN BED AND IS UNABLE TO COMMUNICATE OR FOLLOW DIRECTIONS. PT HAS ASSESSED THE PATIENT AND RECOMENDED NEED FOR HH VS SNF. CHART STATES PATIENT LIVES WITH HIS SON, USES A WHEELCHAIR AND HAS A RAMP TO ENTER THE HOME. FAMILY NOT AT BEDSIDE. I WILL CALL PATIENT SON DEVI AT [phone] TO HELP PLAN DISCHARGE NEEDS. Molder Closed Molds: Marine Campa Last DP export: 04/07/20 1:10 p Patient Name: BROOKE ZHENG Page [phone] at 1427 All edits/amendments must be made on the electronic document DICTATION DATE: 04/07/20 142 STARTING GATE DRIVER: RADHA 04/07/20 142 RPT#: [id number] DC DATE: STATUS: ADM IN [facility] [address] [place] [address] END OF REPORT
[2020-04-07 18:25] VITALS: BP 150/92
--- NOTE | 2020-04-07 18:45 | NUR ---
I have reviewed this patient and I concur with the Shift Assessment completed by the Licensed Practical Nurse today this shift.
[2020-04-07 20:00] VITALS: BP 178/86
--- NOTE | 2020-04-08 00:41 | NUR ---
PT IV OUT. ATTEMPTS X6. STILL NO IV AT THIS TIME. WILL TRY AGAIN IN THE MORNING WITH VASCULAR NURSE.
[2020-04-08 04:00] VITALS: BP 130/82
--- NOTE | 2020-04-08 06:19 | NUR ---
I have reviewed this patient and I concur with the Shift Assessment completed by the Licensed Practical Nurse today this shift.
[2020-04-08 08:12] VITALS: BP 158/90
--- NOTE | 2020-04-08 11:30 | NUR ---
SPOKE WITH MY WILLARD WITH CARDIOLOGY ABOUT PT NOT WANTING A PACEMAKER ANYMORE. SPOKE WITH SON DEVI WHO SAID THAT WAS HIS FATHERS RIGHT. DEVI SPOKE WITH PT ABOUT COUNTINUEING WITH THE PACEMAKER. PT STATED THAT HE WOULD GO AHEAD AND GET THE PACEMAKER TODAY. DEVI STATED THAT HE WOULD NOT BE ABLE TO COME UP HERE BECAUSE HE IS HAVING "SYMPTOMS." ALSO STATED HE WOULDN'T BE ABLE GET A TEST DONE TIL THE 1ST. CL IN REACH. BED ALARM ON. WCTM
[2020-04-08 12:02] VITALS: BP 160/85
--- NOTE | 2020-04-08 12:51 | NUR ---
SPOKE WITH ANESTHISOLIST ABOUT NOT HAVING PREOP MEDS. CALLED CLIENT SUPPORT ANALYST ABOUT NOT HAVING PREOP MEDS. THEY ARE HERE TO GET PT.
--- NOTE | 2020-04-08 15:15 | NUR ---
PT BACK FROM SURGERY. DRESSING PLACED OVER PACEMAKER SITE WITH SMALL BALLPOINT PIN SIZE SPOT OF BLOOD. LEFT ARM IN SLING. PT PLACED ON 7 L HIGH FLOW WHEN THEY BROUGHT HIM BACK. I TURNED IT UP TO THE PROPER 9 HF. AUDIBLE WHEEZES HEARD FROM THE DOOR. SAT PT UP WITH THE BED. O2 SAT IMPROVED. PT COUGHED A COUPLE TIMES AUDIBLE WHEEZES CEASED. MORNING MEDS GIVEN. DIFFICULT TIME GETTING THE POTASSIUM PILL DOWN. SO WE WILL TRY AGAIN LATER. SON DEVI CALLED TO UPDATE AFTER SURGERY. CL IN REACH. WCTM
[2020-04-08 15:34] LABS: HEMATOCRIT 33.9 % (42.0-54.0); HEMOGLOBIN 10.3 g/dL (13.5-17.5); MCH 23.7 pg (26.0-34.0); MCHC 30.4 g/dL (31.0-37.0); MCV 78.1 fL (80.0-100.0); PLATELET COUNT 203 10x3/uL (130-400); RBC 4.34 10x6/uL (4.20-6.10); WBC 4.2 10x3/uL (4.8-10.8)
[2020-04-08 15:43] VITALS: BP 183/100
[2020-04-08 16:00] LABS: CALC OSMOLALITY 289 mosm/kg (275-300); CALCIUM 8.5 mg/dL (8.5-10.1); CARBON DIOXIDE 29.3 mmol/L (21.0-32.0); CHLORIDE - SERUM 107 mmol/L (98-107); CREATININE - SERUM 0.9 mg/dL (0.6-1.3); GLUCOSE 117 mg/dL (74-106); POTASSIUM - SERUM 3.4 mmol/L (3.5-5.1); SODIUM 144 mmol/L (136-145); UREA NITROGEN 17 mg/dL (7-18); eGFR NON AFRICAN AMERICAN 84 mL/min (90-120)
[2020-04-08 17:11] LABS: INR 1.29 (0.85-1.17)
[2020-04-08 17:55] VITALS: BP 184/99
--- NOTE | 2020-04-08 18:28 | NUR ---
CALLING CV ABOUT CONTINUOUS HIGH BP.
--- NOTE | 2020-04-08 19:30 | NUR ---
PT IN BED, EYES CLOSED, RESP EVEN AND UNLABORED. NO DISTRESS NOTED. CL IN REACH, SR UP X 2.
[2020-04-08 20:00] VITALS: BP 134/85
[2020-04-09] VITALS (7 sets, daily range): BP systolic 123–189; BP diastolic 60–102
--- NOTE | 2020-04-09 00:36 | NUR ---
I have reviewed this patient and I concur with the Shift Assessment completed by the Licensed Practical Nurse today this shift.
[2020-04-09 05:54] LABS: BASOPHILS 0 % (0-2); HEMATOCRIT 31.7 % (42.0-54.0); HEMOGLOBIN 9.5 g/dL (13.5-17.5); IMMATURE GRANULOCYTES 0.3 % (0-5); LYMPHOCYTES 13.6 % (15-50); MCH 23.1 pg (26.0-34.0); MCV 77.1 fL (80.0-100.0); MEAN PLATELET VOLUME 9.4 fL (7.4-10.4); MONOCYTES 12.3 % (2-11); NEUTROPHILS 72.8 % (40-80); PLATELET COUNT 242 10x3/uL (130-400); RBC 4.11 10x6/uL (4.20-6.10); RDW 21.8 % (11.5-14.5)
[2020-04-09 05:57] LABS: ANION GAP 10.3 mmol/L (8-16); CALCIUM 8.6 mg/dL (8.5-10.1); CARBON DIOXIDE 31.3 mmol/L (21.0-32.0); CREATININE - SERUM 1.1 mg/dL (0.6-1.3); POTASSIUM - SERUM 3.6 mmol/L (3.5-5.1)
--- NOTE | 2020-04-09 07:46 | NUR ---
ALERT AND ORIENTED. LUNGS CLEAR BILATERALLY. HEART SOUNDS S1 AND S2 HEARD IN ALL SHEPPARD. BOWEL SOUNDS ACTIVE X 4. IV TO LEFT AC PATENT WITHOUT REDNESS. O2 IN PLACE AT 9L HFNC. DENIES NEEDS. BED LOW. BED ALARM ON. CALL PRASAD AND PERSONAL ITEMS IN REACH. WILL CONTINUE TO MONITOR.
--- NOTE | 2020-04-09 08:09 | OP ---
PATIENT NAME: JUSTIN ZHENG JR MEDICAL RECORD: [id number] :[birth year] LOCATION:D.[facility] ADMISSION DATE:04/01/20 SURGEON: DARION FOWLER MD DATE OF OPERATION: 04/08/2020 PROCEDURE: Lead portion of permanent pacemaker placement. INDICATION: Complete heart block. SURGEON: Francisco Wright MD DESCRIPTION OF PROCEDURE: After left subclavian vein cannulated via modified Seldinger technique via Dr. Wright, the RV lead was placed in the RV apex without difficulty. After adequate thresholds and R waves obtained, the leads were attached to protocol and generator and the pocket was closed via Dr. Wright. IMPRESSION: Successful single lead pacemaker on Justin Zheng. COMPLICATIONS: None. ESTIMATED BLOOD LOSS: Minimal. DISPOSITION: To the floor, stable. TRANSINT:[id number] Voice Confirmation ID: [id number] DOCUMENT ID: [id number] DARION FOWLER MD at 0809 CC: [id number] DICTATION DATE: 04/08/20 1352 CIRCULAR KNIFE CUTTER MACHINE: 04/08/20 1646 ADM IN [facility] [address] [place] [address]
--- NOTE | 2020-04-09 09:20 | NUR ---
PRN APRESOLINE GIVEN FOR BP 189/92.
--- NOTE | 2020-04-09 12:45 | NUR ---
NUTRITION FOLLOW UP: COMMENTS: Patient sitting in chair during visit. No family in the room. Patient will begin a calorie count soon. Patient has been experiencing a poor po intake. Patient requires feeding assist with aspiration precautions per SALES SUPPORT TECHNICIAN. Last BM recorded on 04/04. DIET: Mechanical Soft with Ground Meats. 1:1 feeding required. SUPPLEMENT: Ensure with Meals PO INTAKE: 30% avg for last 10 meals WEIGHT: 04/02- 113 lbs BM: x 2 on 04/04 SIG LABS: Na-147(H), Cl-109(H) SIG MEDS: KCl, Lasix, Pepcid, Mag Sulf, Mag Ox, NS @ 50m/hr RECOMMENDATIONS: -Continue current diet per SALES SUPPORT TECHNICIAN -Continue Calorie Count for 3 days -Continue Ensure with Meals -Patient requires feeding assist with all PO intake RD to continue to follow and monitor patient DHS
--- NOTE | 2020-04-09 13:12 | NUR ---
IV SITED TO RFA AFTER 2 ATTEMPTS WITH 22GAUGE.
--- NOTE | 2020-04-09 17:21 | NUR ---
RECHECKED PATIENT'S BP AND HR. BP 123/60. HR 64.
--- NOTE | 2020-04-09 19:00 | NUR ---
BEDSIDE REPORT RECEIVED AND CARE OF PT ASSUMED. PT SITTING UP ON SIDE OF BED WATCHING TV. IV TO RIGHT FA PATENT WITH NS INFUSING AT 50 ML/HR. WILL MONITOR FOR NEEDS.
--- NOTE | 2020-04-10 00:30 | NUR ---
PT PULLED OUT IV...ATTEMPTED TO RE-SITE X3 WITHOUT SUCCESS. ANOTHER NURSE WAS GOING TO TRY AND PT REFUSED ANY FURTHER ATTEMPTS. WILL PASS ALONG IN REPORT WITH HOPES THAT PT WILL ALLOW IV TO BE RE-SITED IN AM.
[2020-04-10 04:00] VITALS: BP 196/102
[2020-04-10 06:50] LABS: CALC OSMOLALITY 300 mosm/kg (275-300); CALCIUM 8.9 mg/dL (8.5-10.1); CARBON DIOXIDE 28.1 mmol/L (21.0-32.0); CHLORIDE - SERUM 109 mmol/L (98-107); CREATININE - SERUM 0.9 mg/dL (0.6-1.3); GLUCOSE 111 mg/dL (74-106); MAGNESIUM - SERUM 1.8 mg/dL (1.8-2.4); POTASSIUM - SERUM 3.2 mmol/L (3.5-5.1); SODIUM 149 mmol/L (136-145); UREA NITROGEN 23 mg/dL (7-18); eGFR NON AFRICAN AMERICAN 84 mL/min (90-120)
[2020-04-10 07:00] LABS: BASOPHILS 0 % (0-2); EOSINOPHILS 0.7 % (0-7); HEMATOCRIT 27.9 % (42.0-54.0); HEMOGLOBIN 8.4 g/dL (13.5-17.5); IMMATURE GRANULOCYTES 0.2 % (0-5); LYMPHOCYTES 8.9 % (15-50); MCH 23.2 pg (26.0-34.0); MCHC 30.1 g/dL (31.0-37.0); MCV 77.1 fL (80.0-100.0); MEAN PLATELET VOLUME 10.1 fL (7.4-10.4); MONOCYTES 7.9 % (2-11); NEUTROPHILS 82.3 % (40-80); PLATELET COUNT 216 10x3/uL (130-400); RBC 3.62 10x6/uL (4.20-6.10); RDW 21.8 % (11.5-14.5); WBC 4.2 10x3/uL (4.8-10.8)
--- NOTE | 2020-04-10 07:36 | NUR ---
ALERT AND ORIENTED TO SELF. LUNGS DIMINISHED BILATERALLY. HEART SOUNDS S1 AND S2 HEARD IN ALL SHEPPARD. BOWEL SOUNDS ACTIVE X 4. NO IV D/T PULLS OUT AND REFUSES. MY ALFORD WHO STATES TO TALK TO MY RODRIGUEZ WHEN ON UNIT. DENIES NEEDS. BED LOW. BED ALARM ON. CALL PRASAD AND PERSONAL ITEMS IN REACH. WILL CONTINUE TO MONITOR.
[2020-04-10 09:34] VITALS: BP 135/84
--- NOTE | 2020-04-10 12:12 | NUR ---
CTA ORDERED BUT PATIENT HAS NO IV. NEED 20 GAUGE FOR CTA. PATIENT REFUSING TO GET IV. WILL HAVE SECOND RN ATTEMPT.
--- NOTE | 2020-04-10 12:24 | NUR ---
2O GAUGE IV PLACED IN RFA FOR CTA.
[2020-04-10 17:45] VITALS: BP 140/76
--- NOTE | 2020-04-10 18:25 | NUR ---
SITTING ON SIDE OF BED. DENIES NEEDS. BED LOW. CALL PRASAD AND PERSONAL ITEMS IN REACH.
--- NOTE | 2020-04-10 19:40 | NUR ---
PATIENT RESTING IN BED WITH NO S/S OF DISTRESS. PATIENT DENIES NEEDS. BED IN LOWEST POSITION AND CL WITHIN REACH. ENCOURAGED THE PATIENT TO CALL IF HE HAS NEEDS. WILL CONTINUE TO MONITOR.
[2020-04-10 20:00] VITALS: BP 152/78
--- NOTE | 2020-04-11 06:32 | NUR ---
PAGED DR. HUGGINS TO NOTIFY HIM OF CHANGES IN PATIENT. PATIENT'S O2 DROPPED INTO THE HIGH 70'S WHILE ON 11L HIGH FLOW NC. PATIENT'S O2 INCREASED TO 15L HIGH FLOW NC. PATIENT'S O2 85%. RT PLACED PATIENT ON NON REBREATHER MASK. PATIENT O2 95-97% ON NON REBREATHER MASK.
--- NOTE | 2020-04-11 08:45 | NUR ---
PATIENT IN BED WITH NON REBREATHER ON 15L. SATS 98-100%. NO SIGNS OF DISTRESS. CALL LIGHT WITHIN REACH.
[2020-04-11 09:17] VITALS: BP 106/76
[2020-04-11 10:17] LABS: BASOPHILS 0.2 % (0-2); EOSINOPHILS 1.1 % (0-7); HEMATOCRIT 30.1 % (42.0-54.0); HEMOGLOBIN 8.8 g/dL (13.5-17.5); IMMATURE GRANULOCYTES 0.5 % (0-5); LYMPHOCYTES 18.7 % (15-50); MCH 23.2 pg (26.0-34.0); MCHC 29.2 g/dL (31.0-37.0); MCV 79.2 fL (80.0-100.0); MONOCYTES 16.2 % (2-11); NEUTROPHILS 63.3 % (40-80); PLATELET COUNT 202 10x3/uL (130-400); RDW 22.4 % (11.5-14.5); WBC 4.4 10x3/uL (4.8-10.8)
--- NOTE | 2020-04-11 11:00 | NUR ---
IV STARTED IN RIGHT ARM X [address] PAT[address] SCAN AT THIS TIME. CALL LIGHT WITHIN REACH.
[2020-04-11 11:08] LABS: CALC OSMOLALITY 299 mosm/kg (275-300); CALCIUM 8.7 mg/dL (8.5-10.1); CARBON DIOXIDE 31.9 mmol/L (21.0-32.0); CHLORIDE - SERUM 111 mmol/L (98-107); CREATININE - SERUM 0.9 mg/dL (0.6-1.3); GLUCOSE 74 mg/dL (74-106); MAGNESIUM - SERUM 1.9 mg/dL (1.8-2.4); POTASSIUM - SERUM 4.1 mmol/L (3.5-5.1); SODIUM 149 mmol/L (136-145); UREA NITROGEN 26 mg/dL (7-18); eGFR NON AFRICAN AMERICAN 84 mL/min (90-120)
--- NOTE | 2020-04-11 12:45 | NUR ---
ASSISTED PATIENT IN EATING LUNCH AT THIS TIME. IV INTACT. NON REBREATHER ON INBETWEEN BITES OF FOOD AND DRINKING. CALL LIGHT WITHIN REACH.
--- NOTE | 2020-04-11 17:49 | NUR ---
PATIENT SLEEPING. DOESNT WANT TO EAT RIGHT NOW. WILL SAVE TRAY FOR LATER.
[2020-04-11 19:09] VITALS: BP 138/97
--- NOTE | 2020-04-11 19:33 | NUR ---
PATIENT'S O2 SAT 90% ON 15L NON REBREATHER. RT AT BEDSIDE. PATIENT CONTINUES TO REMOVE MASK. EXPLAINED TO THE PATIENT THAT THE MASK NEEDS TO STAY ON. PATIENT IS CONFUSED AND HARD OF HEARING. WILL CONTINUE TO MONITOR PATIENT'S O2. WILL ALSO CONTINUE TO EDUCATE THE PATIENT ON THE IMPORTANCE OF LEAVING HIS MASK ON.
[2020-04-11 20:00] VITALS: BP 176/92
[2020-04-12] VITALS: BP 165/89
[2020-04-12 04:00] VITALS: BP 143/85
[2020-04-12 07:22] LABS: CALC OSMOLALITY 300 mosm/kg (275-300); CALCIUM 8.6 mg/dL (8.5-10.1); CARBON DIOXIDE 35.1 mmol/L (21.0-32.0); CHLORIDE - SERUM 112 mmol/L (98-107); CREATININE - SERUM 0.9 mg/dL (0.6-1.3); GLUCOSE 80 mg/dL (74-106); MAGNESIUM - SERUM 1.9 mg/dL (1.8-2.4); SODIUM 150 mmol/L (136-145); UREA NITROGEN 23 mg/dL (7-18); eGFR NON AFRICAN AMERICAN 84 mL/min (90-120)
[2020-04-12 07:38] LABS: BASOPHILS 0 % (0-2); EOSINOPHILS 0.4 % (0-7); HEMATOCRIT 28.7 % (42.0-54.0); HEMOGLOBIN 8.2 g/dL (13.5-17.5); IMMATURE GRANULOCYTES 0.6 % (0-5); LYMPHOCYTES 11.2 % (15-50); MCHC 28.6 g/dL (31.0-37.0); MCV 80.4 fL (80.0-100.0); MEAN PLATELET VOLUME 9.3 fL (7.4-10.4); MONOCYTES 13.4 % (2-11); NEUTROPHILS 74.4 % (40-80); PLATELET COUNT 203 10x3/uL (130-400); RBC 3.57 10x6/uL (4.20-6.10); RDW 22.4 % (11.5-14.5); WBC 4.9 10x3/uL (4.8-10.8)
[2020-04-12 08:56] VITALS: BP 148/92
--- NOTE | 2020-04-12 10:16 | NUR ---
PT WAS TAKEN OFF REBREATHER TO EAT PT STATED HE WAS VERY HUNGRY WHEN WE DID PT SATS DROPPED QUICKLY, PT HAD ALREADY TAKEN MASK OFF BEFORE BREAKFAST TO SIT UP AND SATURATION WAS AT [address] WILLS WALKED IN. CALLED RESPIRATORY AND WAS ADVISED TO TRY HIGHFLOW SO PT CAN EAT. THIS LASTED MAYBE 7 MINUTES BEFORE PT STARTED TO DROP AGAIN FAST. REPLACED REBREATHER AND PT SATURATIONS STARTED TO IMPROVE. PT IS NOW AT 99% WILL LEAVE MASK IN PLACE CONTINUE WITH PLAN OF CARE
[2020-04-12 12:39] VITALS: BP 121/66
--- NOTE | 2020-04-12 14:57 | NUR ---
PT CONTINUES TO TRY AND SIT ON THE SIDE OF BED TO GET OUT, STATES HE IS GOING HOME, EXPLAINED TO PT THAT WE ARE UNABLE TO SEND HIM HOME AT THE MOMENT UNTIL HE FEELS BETTER, PT HAS REBREATHER ON OVER MOUTH AND SATURATION IS STILL BETWEEN 94 AND 97, WITH ASSISTANCE OF DISTRIBUTION SALES REPRESENTATIVE, REPOSITIONED BACK TO MIDDLE OF BED AND RAISED SIDE RAIL CLOSER TO END OF BED. CONTINUE WITH PLAN OF CARE
--- NOTE | 2020-04-12 15:02 | NUR ---
3 day calorie count: Sunday. 28 kcal protein Breakfast 0 0 Lunch 140 20 Dinner 75 2 Total 215 Kcal 22 gm protein SundayApr 10 Breakfast 185 7 Lunch 0 Dinner 0 Total 185 Kcal 7 gm protein SundayApr 11 Breakfast 0 Lunch 55 3 Dinner 0 0 Total 55 kcal 3 gm protein Pt is not meeting estimated energy needs with current po intake. RDN recommends PEG tube placement and nutrition support started. RDN following. P
--- NOTE | 2020-04-12 17:35 | NUR ---
WENT TO PT ROOM AT 1715 AND PT WAS HUNCHED OVER SIDE OF BED IF HE WAS ABOUT TO FALL OUT, WENT TO HELP PT BACK IN BED AND PT DOES NOT HAVE VAPOTHERM ON. UNABLE TO GET PT TO RESPOND TO ME, O2 NOT READING, CALLED A RAPID FOR PT. GRACIE FROM ICU CALLED PT SON AND SPOKE TO HIM ABOUT PT STATUS, SON AGREED TO DNR. PATIENT PLACED BACK ON REBREATHER AND SATURATION IS NOW AT 90. CONTINUE WITH PLAN OF CARE
--- NOTE | 2020-04-12 18:42 | NUR ---
I have reviewed this patient and I concur with the Shift Assessment completed by the Licensed Practical Nurse today this shift.
[2020-04-12 18:45] VITALS: BP 131/60
--- NOTE | 2020-04-12 19:30 | NUR ---
NONVERBAL. OPENS EYES SPONTANEOUSLY. CONT SAO2 SHOWING 33%. PT HAS PULLED NRB MASK OFF. MASK PLACED BACK ON AND PT SAO2 91% PER RT. RESP ARE TACHYPNEIC WITH USE OF ABD ACCESSORY MUSCLES. TELEMETRY SHOWS SR WITH RATE OF 92. BBS ARE RHONCHI WITH DIMINISHED IN BLL. 1/2 NS @ 50 MLHR INFUSING IN LT FOREARM. B/P STABLE.
[2020-04-12 20:00] VITALS: BP 115/45
[2020-04-13 00:40] VITALS: BP 129/65
--- NOTE | 2020-04-13 00:42 | NUR ---
SAO2 ALARMING AT 76%. PT TRYING TO PULL MASK OFF. TACHYPNEIC. INCONT OF URINE. COMPLETE LINEN CHANGE PERFORMED. USING ABD ACCESSORY MUSCLES. O2 @ 15L NRB.
--- NOTE | 2020-04-13 01:16 | NUR ---
NOTIFIED PTS SON THAT PTS CONDITION IS RAPIDLY DECLINING AND HE MIGHT WANT TO COME UP TO SEE HIM AND STATES THAT HE IS ON HIS WAY.
[2020-04-13 02:00] VITALS: BP 96/32
--- NOTE | 2020-04-13 02:00 | NUR ---
PT'S SON DEVI ZHENG IN ROOM. EXPLAINED THAT SAO2 IS DROPPING AND BREATHING HAS BECOME MORE AGONAL. SON STAYING AT BEDSIDE.
[2020-04-13 02:17] VITALS: BP 77/20
--- NOTE | 2020-04-13 02:17 | NUR ---
B/P CONTINUES TO DROP. SAO2 75%. BREATHING IS TACHYPNEIC. FAMILY AT BEDSIDE.
--- NOTE | 2020-04-13 02:46 | NUR ---
NOTIFIED MY CARPIO OF DECLINING CONDITION, V/S. DISCUSSED OPTION OF MEASURES SUCH ABGS, FLUID BOLUS AND PTS SON DECLINED. ALSO DECLINED DILAUDID FOR AGONAL BREATHING.
--- NOTE | 2020-04-13 02:57 | NUR ---
NO RESP. NO B/P. NO PULSE. ASYSTOLE ON MONITOR. NOTIFIED MY CARPIO WHO WILL NOTIFY DR MCNAIR TO PRONOUNCE. FAMILY AT BEDSIDE. NOTIFIED DENTAL CHAIRSIDE ASSISTANT DEISY.
--- NOTE | 2020-04-13 03:14 | NUR ---
DR. MCNAIR HERE TO PRONOUNCE PT.
--- NOTE | 2020-04-13 03:28 | NUR ---
SPOKE WITH JARED AT [facility]. PT DOES NOT MEET ORGAN DONATION CRITERIA DUE TO AGE. REF # [id number].
--- NOTE | 2020-04-13 03:35 | NUR ---
NOTIFIED [facility] IN [place] OF SERVICES REQUESTED PER FAMILY. PERSONAL BELONGINGS GIVEN TO PTS SON DEVI. HOME STATES SOMEONE WILL BE ON THERE WAY SOON.
--- NOTE | 2020-04-13 08:18 | MORECARE ---
CASE MANAGEMENT DISCHARGE SUMMARY PATIENT: BROOKE ZHENG JR UNIT: [id number] ADM DATE: 04/01/20 AGE: 89 : [birth year] SEX: M ROOM/BED: D.2226 AUTHOR: CAROL STORY PHYSICIAN: REFERRING PHYSICIAN: ERIN RANGEL MD DATE OF SERVICE: 04/13/20 Discharge Plan Patient Name: BROOKE ZHENG [facility] [facility] 1930 Planned Disposition: Anticipated Discharge Date: Discharge Date: 04/13/2020 Expected LOS: Initial Reviewer: [email or web address] Initial Review Date: 04/07/2020 Generated: 04/13/20 9:17 am Comments DCP- Discharge Planning Updated by [email or web address]: Marine Campa on 04/07/20 1:[address] Patient Name: BROOKE ZHENG Admission Status: ER Accout number: [id number] Admission Date: 04-01-2020 : 1930 Admission Diagnosis:AMYLOIDOSIS, UNSPECIFIED Attending: ERIN RANGEL Current LOS: 6 Anticipated DC Date: Planned Disposition: Primary Insurance: [facility] MEDICARE SOLUTIONS Discharge Planning Comments: PT PRESENTS IN BED AND IS UNABLE TO COMMUNICATE OR FOLLOW DIRECTIONS. PT HAS ASSESSED THE PATIENT AND RECOMENDED NEED FOR HH VS SNF. CHART STATES PATIENT LIVES WITH HIS SON, USES A WHEELCHAIR AND HAS A RAMP TO ENTER THE HOME. FAMILY NOT AT BEDSIDE. I WILL CALL PATIENT SON DEVI AT [phone] TO HELP PLAN DISCHARGE NEEDS. Software Engineer Mobile: Marine Campa Last DP export: 04/07/20 1:27 p Patient Name: BROOKE ZHENG Page 84724 at 0818 All edits/amendments must be made on the electronic document DICTATION DATE: 04/13/20816 RAPID OUTSOLE STITCHER: RADHA 04/13/20816 RPT#: [id number] DC DATE:04/13/20 STATUS: DIS IN [facility] [address] [place] [address] END OF REPORT
--- NOTE | 2020-04-14 12:56 | OP ---
PATIENT NAME: BROOKE ZHENG JR MEDICAL RECORD: [id number] :[birth year] LOCATION:D.MS [facility]2226 ADMISSION DATE:04/01/20 SURGEON: KAITLIN GALLARDO MD DATE OF OPERATION: 04/08/2020 PREOPERATIVE DIAGNOSES: 1. Sick sinus syndrome. 2. Pleural effusions. POSTOPERATIVE DIAGNOSES: 1. Sick sinus syndrome. 2. Pleural effusions. PROCEDURE: Left subclavian vein single-lead pacemaker placement. SURGEON: Kaitiln Gallardo MD CO-SURGEON: Rojas Medina MD REPORT OF PROCEDURE: The patient's left chest was prepped and draped in sterile fashion. A 20 mL of 1% lidocaine with epinephrine was infused into the surrounding tissues. A skin incision was made on the left superior lateral chest and a subcutaneous pouch was made over the pectoral fascia. A needle was used to cannulate the left subclavian vein. A guidewire was advanced with ease. Fluoro was used to note that the wire was in good position in the venous system. The dilator trocar device was placed over the wire and the wire and dilator were removed. The lead was advanced through the trocar and the trocar was then removed. The lead was positioned appropriately by Dr. Medina and once it was noted to be in good position, then it was sutured into place with a 2-0 Ti-Cron. The pacemaker was affixed to the lead and then placed into the subcutaneous pouch. We sutured the pacemaker down with a single interrupted 2-0 Ti-Cron. We irrigated out the wound bed with antibiotic solution. The subcutaneous tissues were reapproximated with interrupted 3-0 Vicryl and the skin was closed with running subcutaneous 5-0 Monocryl. COMPLICATIONS: None. CONDITION: Stable. ANESTHESIA: Local MAC. BLOOD LOSS: Minimal. TRANSINT:[id number] Voice Confirmation ID: [id number] DOCUMENT ID: [id number] KAITLIN GALLARDO MD at 1256 CC: [id number] DICTATION DATE: 04/08/20 1400 PICK UP OPERATOR: 04/08/20 1649 DIS IN 04/13/20 [place] [address]
== END 2020-04-13 02:57 | DRG 242 ==
LOC: D.ER 11:56 → D.MS 13:53
PROVIDERS: Family Medicine; Family Medicine Adult Medicine; Internal Medicine Cardiovascular Disease; Internal Medicine Interventional Cardiology; Internal Medicine Pulmonary Disease; Radiology Vascular & Interventional Radiology; ADMIT Family Medicine; ATTEND Family Medicine
PROC: 0JH604Z Insertion of Pacemaker, Single Chamber into Chest Subcutaneous Tissue and Fascia, Open Approach (ICD-10-PCS; 2020-04-01)
PROC: 02HK3JZ Insertion of Pacemaker Lead into Right Ventricle, Percutaneous Approach (ICD-10-PCS; 2020-04-01)
PROC: 0W993ZZ Drainage of Right Pleural Cavity, Percutaneous Approach (ICD-10-PCS; principal; 2020-04-01 15:32)
DX: I13.0 Hypertensive heart and chronic kidney disease with heart failure and stage 1 through stage 4 chronic kidney disease, or unspecified chronic kidney disease (principal); J96.21 Acute and chronic respiratory failure with hypoxia; J18.9 Pneumonia, unspecified organism; R40.2344 Coma scale, best motor response, flexion withdrawal, 24 hours or more after hospital admission; R40.2224 Coma scale, best verbal response, incomprehensible words, 24 hours or more after hospital admission; J90 Pleural effusion, not elsewhere classified; N17.9 Acute kidney failure, unspecified; I50.20 Unspecified systolic (congestive) heart failure; E85.9 Amyloidosis, unspecified; Z66 Do not resuscitate; I43 Cardiomyopathy in diseases classified elsewhere; R53.81 Other malaise; D50.9 Iron deficiency anemia, unspecified; J44.9 Chronic obstructive pulmonary disease, unspecified; F03.90 Unspecified dementia, unspecified severity, without behavioral disturbance, psychotic disturbance, mood disturbance, and anxiety; I49.5 Sick sinus syndrome; N18.2 Chronic kidney disease, stage 2 (mild); R40.2134 Coma scale, eyes open, to sound, 24 hours or more after hospital admission